=== PATIENT | female | born 1965 ===

== ENCOUNTER → 2021-03-04 14:56 | Outpatient (BNVA) | payer OTHER, SELFPAY | PROVIDERS: PCP Internal Medicine; Visit Provider Nurse Practitioner Family | DX: G43.109 Migraine with aura, not intractable, without status migrainosus (principal); G47.33 Obstructive sleep apnea (adult) (pediatric); M25.511 Pain in right shoulder | CPT/HCPCS: 99212 ==

== ENCOUNTER → 2021-05-16 13:00 | Outpatient (BNVA) | payer OTHER, SELFPAY | PROVIDERS: PCP Internal Medicine; Visit Provider Nurse Practitioner Family | DX: G43.109 Migraine with aura, not intractable, without status migrainosus (principal); G47.33 Obstructive sleep apnea (adult) (pediatric) | CPT/HCPCS: 99212 ==

== ENCOUNTER → 2021-10-24 09:47 | Outpatient (BNVA) | payer OTHER, SELFPAY | PROVIDERS: PCP Internal Medicine; Visit Provider Nurse Practitioner Family | DX: G43.109 Migraine with aura, not intractable, without status migrainosus (principal); G47.33 Obstructive sleep apnea (adult) (pediatric); E66.9 Obesity, unspecified; Z68.39 Body mass index [BMI] 39.0-39.9, adult; Z79.899 Other long term (current) drug therapy; Z99.89 Dependence on other enabling machines and devices | CPT/HCPCS: 99212 ==

== ENCOUNTER 2021-12-25 14:04 | Outpatient (REF) | payer OTHER, SELFPAY ==
[2021-12-27 15:20] LABS: H Pylori Breath Test Negative (Negative)
== END 2021-12-25 14:05 | disposition home or self-care (01) ==
LOC: HO.LNP 14:04
PROVIDERS: Visit Provider Physician Assistant Surgical
DX: E66.9 Obesity, unspecified (principal); Z11.0 Encounter for screening for intestinal infectious diseases
CPT/HCPCS: 83013

== ENCOUNTER 2021-12-26 14:44 | Outpatient (REF) | payer OTHER, SELFPAY ==
--- NOTE | ~2021-12-26 | XR_ITS ---
EXAMINATION: XR CHEST CLINICAL INFORMATION: Obesity. COMPARISON: None TECHNIQUE: 2 views of the chest were obtained. FINDINGS: The cardiac and mediastinal contours are normal. The lungs are clear. There is no pleural effusion or pneumothorax. There are median sternotomy wires. XR/XR chest 2V IMPRESSION: No evidence for acute disease in the chest.
--- NOTE | 2021-12-26 15:00 | ECG_ITS ---
Test Reason : obesity Blood Pressure : / mmHG Vent. Rate : 075 BPM Atrial Rate : 075 BPM P-R Int : 148 ms QRS Dur : 100 ms QT Int : 394 ms P-R-T Axes : 019 -12 042 degrees QTc Int : 439 ms Normal sinus rhythm Normal ECG No previous ECGs available Referred By: Vinicius Sinclair Electronically Signed By:MEL DYE MD
[2021-12-26 15:05] LABS: MANUAL DIFF FLAG NO
[2021-12-26 16:07] LABS: Basophils Percent Auto 0.2 % (0-2); Eosinophils Absolute Auto 0.1 X10*3/uL (0.0-0.4); Eosinophils Percent Auto 2.6 % (0-4); Hematocrit 41.5 % (37.0-47.0); Hemoglobin 13.3 g/dl (12.0-16.0); Imm Gran Abs Auto 0.05 X10*3/uL (0.00-0.03); Imm Gran Pct Auto 1.1 % (0.0-0.4); Lymphocytes Absolute Auto 2.3 X10*3/uL (1.2-4.9); Lymphocytes Percent Auto 49.5 % (20-40); Mean Corpuscular Hemoglobin 31.5 pg (27.0-33.0); Mean Corpuscular Volume 98.3 fL (80.0-98.0); Monocytes Absolute Auto 0.5 X10*3/uL (0.1-1.2); Monocytes Percent Auto 9.9 % (2-11); Neutrophils Absolute Auto 1.7 x10*3/uL (2.0-8.3); Neutrophils Percent Auto 36.7 % (45-73); Platelet Count 202 X10*3/uL (160-400); Red Blood Count 4.22 X10*6/uL (4.20-5.50); Red Cell Distribution Width 13.9 % (11.0-16.0); White Blood Count 4.7 X10*3/uL (4.8-10.8)
[2021-12-26 16:28] LABS: Estimated Average Glucose 128 mg/dL; Hemoglobin A1c % 6.1 %
[2021-12-26 16:41] LABS: Alanine Aminotransferase 10 U/L (0-31); Albumin Level 3.8 g/dL (3.5-5.0); Alkaline Phosphatase 59 U/L (39-117); Anion Gap 14 (12-20); Aspartate Amino Transferase 16 U/L (5-31); Bilirubin Total 0.4 mg/dL (0.0-1.0); Blood Urea Nitrogen 21 mg/dL (9-16); C Reactive Protein 0.14 mg/dL (< or = 0.50); Calcium 9.5 mg/dL (8.4-10.2); Carbon Dioxide 26 mmol/L (22-29); Chloride 110 mmol/L (96-108); Cholesterol 186 mg/dL; Estimated Glomerular Filt Rate > 60; Glucose Random 99 mg/dL (60-115); HDL Cholesterol 40 mg/dL; Iron 141 mcg/dL (30-160); LDL Cholesterol Calculated 115 mg/dl; Percent Iron Saturation 44 % (15-50); Potassium 4.8 mmol/L (3.3-5.1); Sodium 145 mmol/L (135-145); Total Iron Binding Capacity 321 mcg/dL (228-428); Total Protein 6.9 g/dL (6.5-8.0); Triglycerides 158 mg/dL; Unsaturated Iron Binding 180 ug/dL
[2021-12-26 17:00] LABS: Ferritin 94 ng/mL (10-250); TSH reflex Free T4 0.98 uIU/mL (0.32-4.0); Vitamin D 25-OH Total 5.8 ng/mL (>30)
[2021-12-26 17:10] LABS: Folate 7.7 ng/mL (> or = 4.0); Vitamin B12 265 pg/mL (200-900)
[2021-12-26 17:32] LABS: Insulin 18 uU/mL (2-29)
[2021-12-27 12:55] LABS: Calcium (PTHI) 9.3 mg/dL (8.6-10.4); PTHI 69 pg/mL (16-77)
[2021-12-31 06:18] LABS: Zinc 67 mcg/dL (60-130)
[2022-01-01 11:33] LABS: Vitamin A 34 mcg/dL (38-98)
[2022-01-01 15:52] LABS: Vitamin B1 12 nmol/L (8-30)
== END 2021-12-26 14:45 | disposition home or self-care (01) ==
LOC: HO.LAB 14:44
PROVIDERS: Visit Provider Physician Assistant Surgical
DX: E66.9 Obesity, unspecified (principal)
CPT/HCPCS: 36415; 71046; 80053; 80061; 82306; 82607; 82728; 82746; 83036; 83525; 83540; 83970; 84425; 84443; 84590; 84630; 85025; 86140; 93005; 99202; 99211; 99212

== ENCOUNTER → 2022-01-22 10:09 | Outpatient (BNVA) | payer OTHER, SELFPAY | PROVIDERS: PCP Internal Medicine; Visit Provider Physician Assistant Surgical | DX: E66.9 Obesity, unspecified (principal); Z68.37 Body mass index [BMI] 37.0-37.9, adult | CPT/HCPCS: 99212 ==

== ENCOUNTER → 2022-01-28 13:16 | Outpatient (BNVA) | payer OTHER, SELFPAY | PROVIDERS: PCP Internal Medicine; Referring Provider Physician Assistant Surgical; Visit Provider Dietitian, Registered | DX: E66.9 Obesity, unspecified (principal); Z68.37 Body mass index [BMI] 37.0-37.9, adult | CPT/HCPCS: 97802 ==

== ENCOUNTER → 2022-02-11 09:49 | Outpatient (BNVA) | payer OTHER, SELFPAY | PROVIDERS: PCP Internal Medicine; Visit Provider Physician Assistant Surgical | DX: E66.9 Obesity, unspecified (principal); Z68.37 Body mass index [BMI] 37.0-37.9, adult | CPT/HCPCS: 99212 ==

== ENCOUNTER 2022-02-13 08:06 | Outpatient (REF) | payer OTHER, SELFPAY ==
--- NOTE | ~2022-02-13 | FL_ITS ---
PROCEDURE: XR FLUOROSCOPY UPPER GI WITH AIR CLINICAL INFORMATION: Obesity. COMPARISON: None TECHNIQUE: Air-contrast upper GI examination. FINDINGS: There was normal apposition of the vocal cords while saying E . There is normal elevation of the soft palate while saying candy . Patient swallowed thin and thick barium and half-inch diameter barium tablet without difficulty. No nasopharyngeal reflux or tracheal aspiration identified. There is normal esophageal motility without evidence of persistent stricture or ulcerations/erosions. No significant hiatal hernia was identified. There is noted to be mild gastroesophageal reflux to the level of the sandeep which cleared rapidly. The stomach demonstrated normal distensibility without evidence of abnormal mass or ulceration. There was no delay in gastric emptying. The duodenal bulb and sweep appeared unremarkable. FLUOROSCOPY TIME: 2.9 minutes IMAGES: 47 images DAP: 25.815 Gy-cm2 FL/FL upper GI w air IMPRESSION: Mild gastroesophageal reflux.
--- NOTE | ~2022-02-13 | US_ITS ---
EXAMINATION: US COMPLETE ABDOMEN WITH LIVER ELASTOGRAPHY CLINICAL INFORMATION: Obesity. COMPARISON: None. TECHNIQUE: Real-time imaging of the abdominal viscera. Noninvasive ultrasound liver fibrosis assessment is performed using Cherie ElastPQ point quantification shear wave elastography (2D-SWE) with a C5-2 MHz transducer. Multiple elastography samples are obtained. FINDINGS: PANCREAS: Normal. The visualized pancreatic head and body are normal in appearance. The remainder of the pancreas is obscured from visualization by the overlying bowel gas. ABDOMINAL AORTA: The proximal, middle, and distal aortic segments are normal in caliber. INFERIOR VENA CAVA: Visualized portions are normal. LIVER: The liver demonstrates normal size, contour and increased echogenicity with areas of focal fatty sparing adjacent to gallbladder. There is a calcified area seen in the right hepatic lobe. No focal lesion or intrahepatic biliary duct dilatation. The right lobe measures 13.8 cm in length. The left lobe measures 10.0 cm in length. Portal flow is hepatopedal. Shear wave liver elastography median stiffness is 1.58 m/s (reference: normal median stiffness is 1.3 m/s or less). IQR/median stiffness to assess sampling precision is 0.09 (reference: good quality data set is IQR/median stiffness of 0.15 or less). GALLBLADDER: Normal. The gallbladder is physiologically distended without evidence of stones, sludge, polyps, wall thickening or pericholecystic fluid. COMMON BILE DUCT: Normal in caliber measuring 0.5 cm in diameter. RIGHT KIDNEY: There are in the midpole measuring 0.3 x 2.2 x 0.3 cm and 0.3 x 0.3 0.2 cm. No caliectasis or hydronephrosis seen. No renal calculi or focal parenchymal lesions. The kidney measures 11.6 cm in maximum dimension. LEFT KIDNEY: There is anechoic cyst with calcification in the midpole measuring 1.6 x 1.2 x 1.4 cm. No additional lesions seen. No hydronephrosis. No renal calculi or focal parenchymal lesions. The kidney measures 10.7 cm in maximum dimension. SPLEEN: Normal. The spleen measures 9.6 cm in maximum dimension. FREE FLUID: None. US/US abdomen comp w elastography IMPRESSION: 1. Diffuse fatty infiltration of liver with areas of focal fatty sparing. 2. Echogenic stones in midpole right kidney without caliectasis. 3. Complex cyst midpole left kidney. 4. Liver elastography: Median liver stiffness measures 1.58 m/s corresponding to cACLD ruled out. REFERENCE: Society of Radiologists in Ultrasound Liver Stiffness Thresholds (2020): LIVER STIFFNESS THRESHOLDS: *Liver Stiffness equal or less than 1.3 m/s: High probability of being normal. *Liver Stiffness less than 1.7 m/s: In the absence of other known clinical signs, rules out compensated advanced chronic liver disease. *Liver Stiffness 1.7-2.1 m/s: Suggestive of compensated advanced chronic liver disease but need further test for confirmation. *Liver Stiffness over 2.1 m/s: Rules in compensated advanced chronic liver disease. *Liver Stiffness over 2.4 m/s: Suggestive of clinically significant portal hypertension. QUALITY OF DATA SET: *IQR/Median value equal or less than 0.15 implies a quality data set. *IQR/Median value over 0.15 implies a poor quality data set. SIGNIFICANT CHANGE FROM PRIOR EXAM: Significant change if liver stiffness measurement is 10% or greater from prior exam. OTHER CONSIDERATIONS: The stage of liver fibrosis may be overestimated in the setting of acute hepatitis, liver inflammation, elevated liver function tests, hepatic vascular congestion, obstructive cholestasis, non-fasting state, and infiltrative diseases such as amyloidosis and lymphoma. In some patients with NAFLD, the liver stiffness thresholds for compensated advanced chronic liver disease may be lower. In causes other than viral hepatitis and NAFLD, liver stiffness thresholds are not well established.
== END 2022-02-13 08:07 | disposition home or self-care (01) ==
LOC: HO.US 08:06
PROVIDERS: Visit Provider Physician Assistant Surgical
DX: E66.9 Obesity, unspecified (principal)
CPT/HCPCS: 74246; 76705; 76981

== ENCOUNTER → 2022-02-25 11:01 | Outpatient (BNVA) | payer OTHER, SELFPAY | PROVIDERS: PCP Internal Medicine; Visit Provider Dietitian, Registered | DX: E66.9 Obesity, unspecified (principal); Z68.36 Body mass index [BMI] 36.0-36.9, adult; Z71.3 Dietary counseling and surveillance | CPT/HCPCS: 97803 ==

== ENCOUNTER → 2022-03-05 09:37 | Outpatient (BNVA) | payer OTHER, SELFPAY | PROVIDERS: PCP Internal Medicine; Visit Provider Physician Assistant Surgical | DX: E66.9 Obesity, unspecified (principal); Z68.36 Body mass index [BMI] 36.0-36.9, adult | CPT/HCPCS: 99212 ==

== ENCOUNTER → 2022-04-02 13:57 | Outpatient (BNVA) | payer OTHER, SELFPAY | PROVIDERS: PCP Internal Medicine; Referring Provider Internal Medicine; Visit Provider Physician Assistant Surgical | DX: E66.9 Obesity, unspecified (principal); Z68.35 Body mass index [BMI] 35.0-35.9, adult | CPT/HCPCS: 99212 ==

== ENCOUNTER → 2022-04-04 13:21 | Outpatient (BNVA) | payer OTHER, SELFPAY | PROVIDERS: PCP Internal Medicine; Referring Provider Internal Medicine; Visit Provider Dietitian, Registered | DX: E66.9 Obesity, unspecified (principal); Z71.3 Dietary counseling and surveillance | CPT/HCPCS: 97803 ==

== ENCOUNTER → 2022-04-22 14:16 | Outpatient (BNVA) | payer OTHER, SELFPAY | PROVIDERS: PCP Internal Medicine; Referring Provider Internal Medicine; Visit Provider Surgery | DX: E66.9 Obesity, unspecified (principal); E78.00 Pure hypercholesterolemia, unspecified; G47.33 Obstructive sleep apnea (adult) (pediatric); G43.109 Migraine with aura, not intractable, without status migrainosus; Z90.710 Acquired absence of both cervix and uterus; Z98.890 Other specified postprocedural states; Z68.35 Body mass index [BMI] 35.0-35.9, adult | CPT/HCPCS: 99212 ==

== ENCOUNTER → 2022-04-24 09:24 | Outpatient (BNVA) | payer OTHER, SELFPAY | PROVIDERS: PCP Internal Medicine; Visit Provider Nurse Practitioner Family | DX: G43.109 Migraine with aura, not intractable, without status migrainosus (principal); G47.33 Obstructive sleep apnea (adult) (pediatric); R41.82 Altered mental status, unspecified; F10.11 Alcohol abuse, in remission; Z79.899 Other long term (current) drug therapy | CPT/HCPCS: 99212 ==

== ENCOUNTER 2022-05-05 10:08 | Outpatient (REF) | payer OTHER, SELFPAY ==
--- NOTE | 2022-05-05 10:17 | ECG_ITS ---
Test Reason : AMS Blood Pressure : / mmHG Vent. Rate : 069 BPM Atrial Rate : 069 BPM P-R Int : 166 ms QRS Dur : 106 ms QT Int : 398 ms P-R-T Axes : 020 -17 029 degrees QTc Int : 426 ms Normal sinus rhythm Minimal voltage criteria for LVH, may be normal variant ( Syed product ) Borderline ECG When compared with ECG of 26-DEC-2021 15:09, No significant change was found Referred By: Kiesha Werner Electronically Signed By:TOBIN BEAL
[2022-05-05 10:23] LABS: MANUAL DIFF FLAG NO
[2022-05-05 10:59] LABS: Basophils Percent Auto 0.4 % (0-2); Eosinophils Absolute Auto 0.1 X10*3/uL (0.0-0.4); Eosinophils Percent Auto 1.6 % (0-4); Hematocrit 47.1 % (37.0-47.0); Hemoglobin 14.9 g/dl (12.0-16.0); Imm Gran Abs Auto 0.02 X10*3/uL (0.00-0.03); Imm Gran Pct Auto 0.4 % (0.0-0.4); Lymphocytes Percent Auto 52.7 % (20-40); Mean Corpuscular HGB Conc 31.6 g/dl (31.0-35.0); Mean Corpuscular Volume 98.1 fL (80.0-98.0); Mean Platelet Volume 11.6 fL (9.4-12.3); Monocytes Absolute Auto 0.7 X10*3/uL (0.1-1.2); Monocytes Percent Auto 11.6 % (2-11); Neutrophils Absolute Auto 1.9 x10*3/uL (2.0-8.3); Neutrophils Percent Auto 33.3 % (45-73); Platelet Count 168 X10*3/uL (160-400); Red Cell Distribution Width 13.2 % (11.0-16.0); White Blood Count 5.7 X10*3/uL (4.8-10.8)
[2022-05-05 11:15] LABS: Valproate 49.3 mcg/mL (50.0-100.0)
[2022-05-05 11:38] LABS: Alanine Aminotransferase 16 U/L (0-31); Alkaline Phosphatase 59 U/L (39-117); Anion Gap 12 (12-20); Aspartate Amino Transferase 19 U/L (5-31); Bilirubin Total 0.5 mg/dL (0.0-1.0); Blood Urea Nitrogen 21 mg/dL (9-16); Calcium 9.5 mg/dL (8.4-10.2); Carbon Dioxide 28 mmol/L (22-29); Chloride 111 mmol/L (96-108); Estimated Glomerular Filt Rate > 60; Glucose Random 91 mg/dL (60-115); Sodium 147 mmol/L (135-145); Total Protein 6.9 g/dL (6.5-8.0)
[2022-05-05 11:40] LABS: Erythrocyte Sedimentation Rate 2 MM/HR (0-20)
[2022-05-07 19:24] LABS: CRP High Sensitivity 2.5 mg/L
== END 2022-05-05 10:09 | disposition home or self-care (01) ==
LOC: HO.LAB 10:08
PROVIDERS: PCP Internal Medicine; Visit Provider Nurse Practitioner Family
DX: G43.109 Migraine with aura, not intractable, without status migrainosus (principal); R41.82 Altered mental status, unspecified; Z98.890 Other specified postprocedural states
CPT/HCPCS: 36415; 80053; 80164; 85025; 85652; 86141; 93005

== ENCOUNTER → 2022-05-08 13:22 | Outpatient (BNVA) | payer OTHER, SELFPAY | PROVIDERS: PCP Internal Medicine; Visit Provider Physician Assistant Surgical | DX: E66.9 Obesity, unspecified (principal); Z98.890 Other specified postprocedural states; Z68.34 Body mass index [BMI] 34.0-34.9, adult | CPT/HCPCS: 99212 ==

== ENCOUNTER 2022-05-16 08:13 | Outpatient (REF) | payer OTHER, SELFPAY ==
--- NOTE | 2022-05-16 08:18 | EEG_ITS ---
This is a 16-channel EEG with an EKG lead. The patient is reported awake during the tracing. Background EEG rhythm was mixed theta beta with no obvious asymmetry or paroxysmal tendency. Photic stimulation does not produce any significant abnormality. Hyperventilation is unremarkable. Cardiac lead does not reveal any significant abnormality. No sharp wave spikes or paroxysmal tendencies noted. IMPRESSION: No significant abnormality noted on this EEG. MD DU Jimenez/CADE / [id number]
== END 2022-05-16 08:14 | disposition home or self-care (01) ==
LOC: HO.NEURO 08:13
PROVIDERS: Visit Provider Nurse Practitioner Family
DX: R41.82 Altered mental status, unspecified (principal); F10.11 Alcohol abuse, in remission; G43.109 Migraine with aura, not intractable, without status migrainosus
CPT/HCPCS: 95816

== ENCOUNTER → 2022-05-19 09:53 | Outpatient (REF) | payer OTHER, SELFPAY | LOC: HO.SL 09:53 | PROVIDERS: PCP Internal Medicine; Visit Provider Nurse Practitioner Family | DX: G47.33 Obstructive sleep apnea (adult) (pediatric) (principal); R06.83 Snoring; R63.4 Abnormal weight loss | CPT/HCPCS: 95806 ==

== ENCOUNTER 2022-05-23 07:16 | Outpatient (REF) | payer OTHER, SELFPAY ==
--- NOTE | ~2022-05-23 | MR_ITS ---
EXAMINATION: MRI OF THE BRAIN WITHOUT CONTRAST CLINICAL INFORMATION: Altered mental status and new onset seizures. COMPARISON: There are no prior studies available for comparison at time of dictation. TECHNIQUE: MRI of the brain was obtained using routine sequences without contrast. FINDINGS: No diffusion abnormalities are identified to suggest an acute or subacute infarct. No mass effect or midline shift is seen. The ventricles and sulci are normal in size; slight asymmetry of the bodies of the lateral ventricles is within normal limits of variation. There are a few scattered nonspecific foci of hyperintense T2/FLAIR signal in the white matter. The hippocampi are symmetric in size and signal. No extra-axial fluid collections are seen. The brainstem and cerebellum are normal. No pathologic magnetic susceptibility artifact is identified on the gradient refocused acquisition. The craniovertebral junction, marrow signal, and midline structures are normal. There are mild degenerative changes of the right temporomandibular joint. The major intracranial flow-voids at the level of the [place] are preserved. The dural venous sinus flow-voids are maintained. The mastoid air cells and paranasal sinuses are well-aerated. MR/MR head/brain wo con IMPRESSION: 1. There are no acute bleeds or infarcts. No masses are demonstrated. The hippocampi are symmetric in size and signal.
== END 2022-05-23 07:17 | disposition home or self-care (01) ==
LOC: HO.MRI 07:16
PROVIDERS: PCP Internal Medicine; Visit Provider Nurse Practitioner Family
DX: R41.82 Altered mental status, unspecified (principal); F10.11 Alcohol abuse, in remission; G43.109 Migraine with aura, not intractable, without status migrainosus
CPT/HCPCS: 70551

== ENCOUNTER → 2022-08-01 10:28 | Outpatient (BNVA) | payer OTHER, SELFPAY | PROVIDERS: PCP Internal Medicine; Visit Provider Physician Assistant Surgical | DX: E66.9 Obesity, unspecified (principal); Z68.35 Body mass index [BMI] 35.0-35.9, adult | CPT/HCPCS: Q3014 ==

== ENCOUNTER → 2022-08-21 12:15 | Outpatient (BNVA) | payer OTHER, SELFPAY | PROVIDERS: PCP Internal Medicine; Visit Provider Nurse Practitioner Family | DX: G43.109 Migraine with aura, not intractable, without status migrainosus (principal); R41.82 Altered mental status, unspecified; M54.50 Low back pain, unspecified; Z79.899 Other long term (current) drug therapy | CPT/HCPCS: 99212 ==

== ENCOUNTER → 2022-08-29 14:29 | Outpatient (BNVA) | payer OTHER, SELFPAY | PROVIDERS: PCP Internal Medicine; Visit Provider Dietitian, Registered | DX: E66.9 Obesity, unspecified (principal); Z71.3 Dietary counseling and surveillance | CPT/HCPCS: 97803 ==

== ENCOUNTER 2022-12-22 12:52 | Outpatient (AMB) | payer OTHER, SELFPAY ==
--- NOTE | 2022-12-22 13:01 | MHC.OFFVIS ---
Intake Vital Signs 12/22/22 13:02 Height 5 ft 6.5 in Weight 243 lb BMI 38.6 BP 114/78 Blood Pressure Location Rt brachial Position Sitting Pulse 94 Pulse Source Pulse Oximeter Pulse Oximetry (%) 97 Oxygen Delivery Method Room Air Intake Visit Reasons: 4m follow up-LVM Intake Note: Patient presents for 4 month follow up. Patient states I'm getting a lot of headaches in the morning not sure if it's becuse of the cold weather. Allergies aspirin Allergy (Severe, Verified 12/22/22 13:04) Anaphylaxis corn Allergy (Severe, Verified 12/22/22 13:04) anaphylaxis pineapple Allergy (Severe, Verified 12/22/22 13:04) Hives seafood Allergy (Severe, Verified 12/22/22 13:04) anaphylaxis heparin Allergy (Mild, Verified 12/22/22 13:04) Unknown Latex, Natural Rubber Allergy (Mild, Verified 12/22/22 13:04) unknown nitrofurantoin [From Macrobid] Allergy (Mild, Verified 12/22/22 13:04) unknown Medication List - Last Reconciled 12/22/22 by LINDA Haynes albuterol sulfate 0.63 mg inhalation Q4-6H PRN albuterol sulfate 90 mcg/actuation 2 puffs inhalation Q6H PRN amitriptyline 30 mg (3 x 10 mg) PO BEDTIME 30 days atorvastatin 20 mg PO DAILY baclofen 20 mg (2 x 10 mg) PO BEDTIME PRN 90 days cholecalciferol (vitamin D3) 125 mcg PO DAILY clonazepam (Klonopin) 1 mg PO BID cyanocobalamin (vitamin B-12) (Vitamin B-12) 1,000 mcg PO DAILY divalproex ER 500 mg PO BID erenumab-aooe (Aimovig Autoinjector) 140 mg subcut monthly; 30 days meloxicam 15 mg PO DAILY mirabegron ER (Myrbetriq) 25 mg PO DAILY mirtazapine 45 mg PO DAILY omeprazole 20 mg PO DAILY risperidone 2 mg PO BEDTIME sumatriptan succinate 50 - 100 mg (0.5 - 1 x 100 mg) PO Q2H PRN 2 doses topiramate 50 mg PO BID 90 days tretinoin 0.025% appl topical vitamin A palmitate 10,000 units PO DAILY zafirlukast 20 mg PO BID HPI HPI Comments History of Present Illness Details 57-yr-old female presents for f/u visit. Pt reports she had a recent lumbar injection, which was not helpful. Her atorvaststin was increased from 20mg to 40mg qhs about a month ago. She has been waking up with a pounding headache x's the past month. A/w photophobia, phonophobia, N/V. Just wants to lay down in a dark quiet room. The pain is mod-severe. She is complaint w/ Amitriptyline, Aimovig- alst injection was 2 days ago, topiramate. She did run out of baclofen about 2 weeks ago. She is using Sumatriptan and Tylenol- sometimes works, sometimes it does not work. She has not had any episodes of spacing out or AMS. She is wondering if she still really needs to use her CPAP- she does still ahve fatigue, some snoring and sleep difficulties. [facility] Medical History History of ETOH abuse Surgical History S/P right rotator cuff repair H/O heart surgery Total knee replacement status H/O: hysterectomy Family History Father HTN (hypertension) Mother Chronic mental illness Depression Anxiety Family/Other Chronic mental illness Depression Anxiety Schizophrenia Social History Alcohol intake: never Patient Tobacco Use Status: Never used Tobacco Review of Systems Const All systems reviewed & are unremarkable except as noted in HPI and below Physical Exam Vital Signs: Last Vital Signs Pulse 94 12/22/22 13:02 BP 114/78 12/22/22 13:02 Pulse Ox 97 12/22/22 13:02 Oxygen Delivery Method Room Air 12/22/22 13:02 BMI result Body Mass Index 38.6 Const General: cooperative and no acute distress Orientation/consciousness: patient oriented x3 HEENT Head: Yes normocephalic Resp Effort & Inspection: normal respiratory effort and able to speak in complete sentences Neuro Other: Antalgic gait w/ cane General: patient oriented x3 and CN's II-XI intact bilaterally Cognition (Neuro): normal cognition Motor exam (neuro): 5/5 motor strength present throughout Psych Appearance: grossly normal Mental Status: mental status grossly normal Speech and movement: Normal speech and movement present Affect: normal affect Attitude: cooperative Thought process: Normal thought process present Thought content: Normal thought content present Insight: Good insight present (Psych) Judgement: Good judgement present (Psych) Assessment & Plan Assessment & Plan (1) Snoring: Code(s): R06.83 - Snoring (2) Sleep difficulties: Code(s): G47.9 - Sleep disorder, unspecified (3) Fatigue: Code(s): R53.83 - Other fatigue (4) Nocturnal hypoxemia: Code(s): G47.34 - Idiopathic sleep related nonobstructive alveolar hypoventilation (5) Migraine with aura, not intractable, without status migrainosus: Code(s): G43.109 - Migraine with aura, not intractable, without status migrainosus Plan For h/o transient episodes of AMS w/o LOC: Cntinue Depakote and Topiramate. For low back pain: Continue Baclofen to 20mg bid (or 5mg bid and 10mg qhs) f/u w/ ortho ? For headaches: Try reducing Atorvaststin back to 20mg qhs- to see if that improves her increased headache burden. Continue Topiramate. Continue Amitriptyline, Mag, B2, Aimovig. Continue Sumatriptan to 100mg- 1/2-1 tab prn. Trial Rizatriptan- in hopes this is more helpful ? For sleep: Continue CPAP for now. Pt advised to undergo in-lab PSG to further assess status of sleep apnea. HST showed AHI 3/hr, O2 himanshu 69%, Average SpO2 93%. ? f/u in 4 months or sooner prn. Orders: Orders RT PSG in-lab sleep study Today G47.34 - Idiopathic sleep related nonobstructive alveolar hypoventilation, G47.9 - Sleep disorder, unspecified, R06.83 - Snoring, R53.83 - Other fatigue Medications: New atorvastatin 40 mg PO BEDTIME celecoxib (Celebrex) 50 mg PO DAILY rizatriptan max 2 tabs per day or 4 tabs per week 5 - 10 mg (0.5 - 1 x 10 mg) PO Q2H 21 days PRN 12 tabs 3RF migraine headache Refilled baclofen 20 mg (2 x 10 mg) PO BEDTIME 90 days PRN 180 tabs 1RF for muscle spasm Coding Level of Care Code Est Pt Level 4 (84756) Diagnoses Snoring R06.83 Sleep difficulties G47.9 Fatigue R53.83 Nocturnal hypoxemia G47.34 Migraine with aura, not intractable, without status migrainosus G43.109
[2022-12-22 13:02] VITALS: BP 114/78; PULSE 94; O2SAT 97; BMI 38.6
== END 2022-12-22 13:37 | disposition home or self-care (01) ==
PROVIDERS: PCP Internal Medicine; Visit Provider Nurse Practitioner Family
DX: R06.83 Snoring (principal); G47.9 Sleep disorder, unspecified; R53.83 Other fatigue; G47.34 Idiopathic sleep related nonobstructive alveolar hypoventilation; G43.109 Migraine with aura, not intractable, without status migrainosus
CPT/HCPCS: 99214

== ENCOUNTER → 2022-12-22 12:52 | Outpatient (BNVA) | payer OTHER, SELFPAY | PROVIDERS: PCP Internal Medicine; Visit Provider Nurse Practitioner Family | DX: G43.109 Migraine with aura, not intractable, without status migrainosus (principal); G47.9 Sleep disorder, unspecified; G47.34 Idiopathic sleep related nonobstructive alveolar hypoventilation; R53.83 Other fatigue; R06.83 Snoring | CPT/HCPCS: 99212 ==

== ENCOUNTER → 2023-01-21 18:40 | Outpatient (REF) | payer OTHER, SELFPAY | LOC: HO.SL 18:40 | PROVIDERS: PCP Internal Medicine; Visit Provider Nurse Practitioner Family | DX: G47.34 Idiopathic sleep related nonobstructive alveolar hypoventilation (principal); R06.83 Snoring; R53.83 Other fatigue | CPT/HCPCS: 95810 ==

== ENCOUNTER → 2023-01-21 23:23 | Outpatient (BNV) | payer OTHER, SELFPAY | PROVIDERS: PCP Internal Medicine; Visit Provider Psychiatry & Neurology Neurology | DX: R06.83 Snoring (principal) | CPT/HCPCS: 95810 ==

== ENCOUNTER 2023-04-29 13:03 | Outpatient (AMB) | payer OTHER, SELFPAY ==
--- NOTE | 2023-04-29 13:04 | MHC.OFFVIS ---
Intake Intake Visit Reasons: 4 mnts f/u appt - CONF w/address-[facility] Intake Note: patieint following up Allergies aspirin Allergy (Severe, Verified 04/29/23 13:05) Anaphylaxis corn Allergy (Severe, Verified 04/29/23 13:05) anaphylaxis pineapple Allergy (Severe, Verified 04/29/23 13:05) Hives seafood Allergy (Severe, Verified 04/29/23 13:05) anaphylaxis heparin Allergy (Mild, Verified 04/29/23 13:05) Unknown Latex, Natural Rubber Allergy (Mild, Verified 04/29/23 13:05) unknown nitrofurantoin [From Macrobid] Allergy (Mild, Verified 04/29/23 13:05) unknown PFSH Medical History History of ETOH abuse Surgical History S/P right rotator cuff repair H/O heart surgery Total knee replacement status H/O: hysterectomy Family History Father HTN (hypertension) Mother Chronic mental illness Depression Anxiety Family/Other Chronic mental illness Depression Anxiety Schizophrenia Social History Alcohol intake: never Patient Tobacco Use Status: Never used Tobacco Assessment & Plan Assessment & Plan (1) Migraine with aura, not intractable, without status migrainosus: Code(s): G43.109 - Migraine with aura, not intractable, without status migrainosus Plan pt did not respond to doximity link Telehealth Telehealth Location of provider rendering services: practice address Location of patient: address on file Patient Identification confirmed using: Name, : Yes Telehealth method: voice only Patient verbally consented to treatment: Yes Patient verbally consented to billing insurance company: Yes Patient informed of any privacy concerns related to visit: Yes Coding Level of Care Code Tele Est Pt Level 1 (57793) Diagnoses Migraine with aura, not intractable, without status migrainosus G43.109 Comment pt did not connect via link
== END 2023-04-29 16:45 ==
LOC: HO.HSMS 13:04
PROVIDERS: PCP Internal Medicine; Visit Provider Nurse Practitioner Family
DX: G43.109 Migraine with aura, not intractable, without status migrainosus (principal)
CPT/HCPCS: 99211

== ENCOUNTER → 2023-04-29 13:03 | Outpatient (BNVA) | payer OTHER, SELFPAY | PROVIDERS: PCP Internal Medicine; Visit Provider Nurse Practitioner Family ==

== ENCOUNTER 2023-06-05 12:46 | Outpatient (AMB) | payer OTHER, SELFPAY ==
[2023-06-05 12:58] VITALS: BP 124/74; PULSE 71; O2SAT 96; BMI 40.4
--- NOTE | 2023-06-05 12:58 | A.OFFVIS_ITS ---
Intake Vital Signs 06/05/23 12:58 Height 5 ft 6.5 in Weight 254 lb BMI 40.4 BP 124/74 Blood Pressure Location Rt brachial Position Sitting Pulse 71 Pulse Source Pulse Oximeter Pulse Oximetry (%) 96 Oxygen Delivery Method Room Air Intake Visit Reasons: Followup-Conf Intake Note: Patient presents for follow up.Patient following up had a headache episode about a month. Allergies aspirin Allergy (Severe, Verified 06/05/23 13:01) Anaphylaxis corn Allergy (Severe, Verified 06/05/23 13:01) anaphylaxis pineapple Allergy (Severe, Verified 06/05/23 13:01) Hives seafood Allergy (Severe, Verified 06/05/23 13:01) anaphylaxis heparin Allergy (Mild, Verified 06/05/23 13:01) Unknown Latex, Natural Rubber Allergy (Mild, Verified 06/05/23 13:01) unknown nitrofurantoin [From Macrobid] Allergy (Mild, Verified 06/05/23 13:01) unknown HPI HPI Comments History of Present Illness Details 57-yr-old female presents for f/u visit. She recently had a a recent ? left upper molar tooth repair. Pt reports she had a fall about 2 months ago in the shower. She got lightheaded, tripped, and then fell. States had some bruising, but did not feel she needed to go to the ER. She is not prone to becoming lightheaded in the shower. Prior to the day of the fall, she had been fasting for Lent- had taken only water and bread x's the previous 27 days (she has been doing this fast for the last yrs during Lent and also for Buddhist). After the fall, she stopped her fast. She has not been having many migraines. She is complaint w/ Amitriptyline, Aimovig, topiramate. Uisng Rizatripan prn- is helpful. Using Baclofen prn with occipital/neck tightness. She is using Sumatriptan and Tylenol- sometimes works, sometimes it does not work. Baseline headache characteristics: Moderate to severe pounding headache a/w photophobia, phonophobia, N/V. Just wants to lay down in a dark quiet room. She has not had any episodes of spacing out or AMS. Her in-lab sleep study showed AHI 3/hr, REM AHI 30/hr, and O2 himanshu 73%. Pt is f/b Dr Clements, and pt has requested Dr Clements to f/u on recommendations to assess the nocturnal hypoxemia. [facility] Medical History (Updated 06/05/23 @ 14:02 by LINDA Haynes) History of ETOH abuse Surgical History (Updated 06/05/23 @ 13:02 by NEGRA Holland) H/O breast biopsy S/P right rotator cuff repair H/O heart surgery Total knee replacement status H/O: hysterectomy Family History Father HTN (hypertension) Mother Chronic mental illness Depression Anxiety Family/Other Chronic mental illness Depression Anxiety Schizophrenia Social History Alcohol intake: never Patient Tobacco Use Status: Never used Tobacco Physical Exam Vital Signs: Last Vital Signs Pulse 71 06/05/23 12:58 BP 124/74 06/05/23 12:58 Pulse Ox 96 06/05/23 12:58 Oxygen Delivery Method Room Air 06/05/23 12:58 BMI result Body Mass Index 40.4 Const General: cooperative and no acute distress Orientation/consciousness: patient oriented x3 Resp Effort & Inspection: normal respiratory effort and able to speak in complete sentences Neuro Other: General: patient oriented x3 Cranial nerves: Yes CN's II-XII intact bilaterally (w/ lower facial asymmetry- left cheek swelling s/p dental work) Cognition (Neuro): normal cognition Psych Appearance: grossly normal Mental Status: mental status grossly normal Speech and movement: Normal speech and movement present Affect: normal affect Attitude: cooperative Assessment & Plan Assessment & Plan (1) Migraine with aura, not intractable, without status migrainosus: Code(s): G43.109 - Migraine with aura, not intractable, without status migrainosus (2) Nocturnal hypoxemia: Code(s): G47.34 - Idiopathic sleep related nonobstructive alveolar hypoventilation (3) Episodic lightheadedness: Code(s): R42 - Dizziness and giddiness Plan For recent episode of lightheadedness and fall- Likely secondary to prolonged fasting. Advised pt to avoid fasting d/t migraine and polypharmacy. For h/o transient episodes of AMS w/o LOC: Continue Depakote and Topiramate. Check CBC, CMP, Depakote levels. For low back pain: Continue Baclofen to 20mg bid (or 5mg bid and 10mg qhs) ? For headaches: Continue Topiramate. Continue Amitriptyline, Mag, B2, Aimovig. Continue Rizatriptan prn Hold Sumatriptan to 100mg- 1/2-1 tab prn. ? For sleep: Continue CPAP for now. Pt in-lab sleep study showed AHI 3/hr, REM AHI 30/hr, and O2 himanshu 73%. HST showed AHI 3/hr, O2 himanshu 69%, Average SpO2 93%. [id number] w/ Dr Clements as scheduled. ? f/u in 6 months or sooner prn. Orders: Orders Complete Blood Count Auto Diff Today G43.109 - Migraine with aura, not intractable, without status migrainosus, R41.82 - Altered mental status, unspecified, R53.83 - Other fatigue Comprehensive Met. Panel Today G43.109 - Migraine with aura, not intractable, without status migrainosus, R41.82 - Altered mental status, unspecified, R53.83 - Other fatigue Valproate Today G43.109 - Migraine with aura, not intractable, without status migrainosus, R41.82 - Altered mental status, unspecified, R53.83 - Other fatigue Coding Level of Care Code Est Pt Level 4 (23775) Diagnoses Migraine with aura, not intractable, without status migrainosus G43.109 Nocturnal hypoxemia G47.34 Episodic lightheadedness R42
== END 2023-06-05 13:44 | disposition home or self-care (01) ==
PROVIDERS: PCP Internal Medicine; Visit Provider Nurse Practitioner Family
DX: G43.109 Migraine with aura, not intractable, without status migrainosus (principal); G47.34 Idiopathic sleep related nonobstructive alveolar hypoventilation; R42 Dizziness and giddiness
CPT/HCPCS: 99214

== ENCOUNTER → 2023-06-05 12:46 | Outpatient (BNVA) | payer OTHER, SELFPAY | PROVIDERS: PCP Internal Medicine; Visit Provider Nurse Practitioner Family | DX: G43.109 Migraine with aura, not intractable, without status migrainosus (principal); G47.34 Idiopathic sleep related nonobstructive alveolar hypoventilation; R42 Dizziness and giddiness | CPT/HCPCS: 99212 ==

== ENCOUNTER 2023-08-06 10:47 | Outpatient (REF) | payer OTHER, SELFPAY ==
[2023-08-06 17:34] LABS: MANUAL DIFF FLAG NO
[2023-08-06 17:37] LABS: Basophils Percent Auto 0.3 % (0-2); Eosinophils Absolute Auto 0.1 X10*3/uL (0.0-0.4); Eosinophils Percent Auto 2.1 % (0-4); Hematocrit 44.5 % (37.0-47.0); Hemoglobin 14.7 g/dl (12.0-16.0); Imm Gran Abs Auto 0.04 X10*3/uL (0.00-0.03); Imm Gran Pct Auto 0.6 % (0.0-0.4); Lymphocytes Absolute Auto 1.9 X10*3/uL (1.2-4.9); Lymphocytes Percent Auto 30.6 % (20-40); Mean Corpuscular Volume 96.7 fL (80.0-98.0); Mean Platelet Volume 10.6 fL (9.4-12.3); Monocytes Absolute Auto 0.4 X10*3/uL (0.1-1.2); Monocytes Percent Auto 6.1 % (2-11); Neutrophils Absolute Auto 3.8 x10*3/uL (2.0-8.3); Neutrophils Percent Auto 60.3 % (45-73); Platelet Count 229 X10*3/uL (160-400); Red Cell Distribution Width 12.9 % (11.0-16.0); White Blood Count 6.3 X10*3/uL (4.8-10.8)
[2023-08-06 17:51] LABS: Alanine Aminotransferase 17 U/L (0-31); Albumin Level 3.9 g/dL (3.5-5.0); Alkaline Phosphatase 65 U/L (39-117); Anion Gap 16 (12-20); Aspartate Amino Transferase 18 U/L (5-31); Bilirubin Total 0.3 mg/dL (0.0-1.0); Blood Urea Nitrogen 22 mg/dL (9-16); Calcium 9.3 mg/dL (8.4-10.2); Carbon Dioxide 24 mmol/L (22-29); Chloride 107 mmol/L (96-108); Estimated Glomerular Filt Rate > 60; Glucose Random 178 mg/dL (60-115); Potassium 3.9 mmol/L (3.3-5.1); Sodium 143 mmol/L (135-145)
== END 2023-08-06 10:48 | disposition home or self-care (01) ==
LOC: HO.HKASLDS 10:47
PROVIDERS: Visit Provider Nurse Practitioner Family
DX: R42 Dizziness and giddiness (principal); Z91.81 History of falling
CPT/HCPCS: 36415; 80053; 85025

== ENCOUNTER 2023-08-27 06:50 | Outpatient (REF) | payer OTHER, SELFPAY ==
--- NOTE | ~2023-08-27 | CT_ITS ---
EXAMINATION: CT HEAD WITHOUT CONTRAST CLINICAL INFORMATION: Fall. Head trauma. COMPARISON: MRI dated 05/23/2022. TECHNIQUE: Contiguous axial imaging was performed from the skullbase to vertex without intravenous administration of contrast. This CT examination was performed using dose optimization techniques as appropriate, variously including the following: *Automated exposure control *Adjustment of mA and/or kV according to patient size (this includes techniques or standardized protocols for targeted exams where dose is matched to indication/reason for exam; i.e. extremities or head) *Use of iterative reconstruction technique DLP: 1035 mGy-cm. FINDINGS: There is no evidence of acute intracranial hemorrhage or territorial infarction. No abnormal mass effect or midline shift is seen. [place] to white matter differentiation is well preserved. No extra-axial fluid collections are identified. The ventricles are normal in size. There is no abnormal attenuation within the brain parenchyma. The osseous structures and soft tissues are normal. The mastoid air cells and visualized portions of the paranasal sinuses are well aerated. CT/CT head/brain wo IV con IMPRESSION: No acute intracranial pathology.
== END 2023-08-27 06:51 | disposition home or self-care (01) ==
LOC: HO.CT 06:50
PROVIDERS: PCP Internal Medicine; Visit Provider Nurse Practitioner Family
DX: S09.90XA Unspecified injury of head, initial encounter (principal); R42 Dizziness and giddiness; W19.XXXA Unspecified fall, initial encounter
CPT/HCPCS: 70450

== ENCOUNTER 2023-11-30 12:54 | Outpatient (AMB) | payer OTHER, SELFPAY ==
[2023-11-30 13:09] VITALS: PULSE 78; O2SAT 97; BMI 41.3
--- NOTE | 2023-11-30 13:09 | A.OFFVIS_ITS ---
Vital Signs 11/30/23 13:09 Height 5 ft 6.5 in Weight 260 lb BMI 41.3 Pulse 78 Pulse Source Pulse Oximeter Pulse Oximetry (%) 97 Oxygen Delivery Method Room Air Intake Visit Reasons: Follow up Intake Note: Patient presents for follow up. patient having constant headaches for 2 weeks now Allergies aspirin Allergy (Severe, Verified 11/30/23 13:11) Anaphylaxis corn Allergy (Severe, Verified 11/30/23 13:11) anaphylaxis pineapple Allergy (Severe, Verified 11/30/23 13:11) Hives seafood Allergy (Severe, Verified 11/30/23 13:11) anaphylaxis heparin Allergy (Mild, Verified 11/30/23 13:11) Unknown Latex, Natural Rubber Allergy (Mild, Verified 11/30/23 13:11) unknown nitrofurantoin [From Macrobid] Allergy (Mild, Verified 11/30/23 13:11) unknown Medication List - Last Reconciled 11/30/23 by LINDA Haynes albuterol sulfate 0.63 mg inhalation Q4-6H PRN albuterol sulfate 90 mcg/actuation 2 puffs inhalation Q6H PRN amitriptyline 30 mg (3 x 10 mg) PO BEDTIME 30 days atorvastatin 40 mg PO BEDTIME baclofen 20 mg (2 x 10 mg) PO BEDTIME PRN 90 days celecoxib (Celebrex) 50 mg PO DAILY cholecalciferol (vitamin D3) 125 mcg PO DAILY clonazepam (Klonopin) 1 mg PO BID cyanocobalamin (vitamin B-12) (Vitamin B-12) 1,000 mcg PO DAILY divalproex ER 500 mg PO BID erenumab-aooe (Aimovig Autoinjector) 140 mg subcut monthly; 30 days meloxicam 15 mg PO DAILY mirabegron ER (Myrbetriq) 25 mg PO DAILY mirtazapine 45 mg PO DAILY omeprazole 20 mg PO DAILY risperidone 2 mg PO BEDTIME rizatriptan 5 - 10 mg (0.5 - 1 x 10 mg) PO Q2H PRN 21 days sumatriptan succinate 50 - 100 mg (0.5 - 1 x 100 mg) PO Q2H PRN 2 doses topiramate 50 mg PO BID 90 days tretinoin 0.025% appl topical vitamin A palmitate 10,000 units PO DAILY zafirlukast 20 mg PO BID HPI Comments Details: 58-yr-old female presents for f/u visit. Pt denies any significant interval medical changes. Pt reports she has been waking up every night at 3am w/ a different headache. the headache starts as a pressure in her neck and moves up into her bilateral temples, which is a/w photophobia, nausea, neck numbness. The headache comes and goes throughout the day. She is not sure if headache is worse or better with certain positions. Her vision is more blurry- started about a month ago. Her last eye exam was 3 months ago- was given new prescription glasses in August which initially was helpful. Nothing seems to help this headache, even her triptans and topamax. Using Baclofen 10-20mg prn- not recently. She is f/b [facility] for her neck pain/tightness- has had c-spine XR and has been referred for MRI- appt pending PA. Denies recent accidents, injuries, illness, fever. She is not sure how often she is having her typical migraine- hard to tell which is which. Baseline headache characteristics: Moderate to severe pounding headache a/w photophobia, phonophobia, N/V. Just wants to lay down in a dark quiet room. She has had one episode of feeling dizzy while in bed. She has not been using her CPAP, states we told her she did not have to. She had a recent sleep study- ordered by Dr Clements. [facility] Medical History History of ETOH abuse Surgical History H/O breast biopsy S/P right rotator cuff repair H/O heart surgery Total knee replacement status H/O: hysterectomy Family History Father HTN (hypertension) Mother Chronic mental illness Depression Anxiety Family/Other Chronic mental illness Depression Anxiety Schizophrenia Social History Alcohol intake: never Patient Tobacco Use Status: Never used Tobacco Physical Exam Vital Signs: Last Vital Signs Pulse 78 11/30/23 13:09 Pulse Ox 97 11/30/23 13:09 Oxygen Delivery Method Room Air 11/30/23 13:09 BMI result Body Mass Index 41.3 Const General: cooperative and no acute distress Orientation/consciousness: patient oriented x3 Resp Effort & Inspection: normal respiratory effort and able to speak in complete sentences Neuro Other: Photophobic Left occipital and left neck palpable tenderness. Bilateral marked posterior cervical tightness. Cervical ROM: limited, extension elicits discomfort moving down neck. General: patient oriented x3 Cranial nerves: Yes CN's II-XII intact bilaterally Cognition (Neuro): normal cognition Deep tendon reflexes (DTR's): Right triceps reflex intensity grade: 1+, Left triceps reflex intensity grade: 1+, Rt Biceps (C5, C6): 1+, Left biceps reflex i ntensity grade: 1+, Right brachioradialis reflex intensity grade: 1+, Left brachioradialis reflex intensity grade: 1+, Right patellar reflex intensity grade: 1+ and Left patellar reflex intensity grade: 1+ Psych Appearance: grossly normal Mental Status: mental status grossly normal Speech and movement: Normal speech and movement present Affect: normal affect Attitude: cooperative Assessment & Plan Assessment & Plan (1) Migraine with aura, not intractable, without status migrainosus: Code(s): G43.109 - Migraine with aura, not intractable, without status migrainosus Category: Medical (2) Cervicalgia: Code(s): M54.2 - Cervicalgia Category: Medical (3) Nocturnal hypoxemia: Code(s): G47.34 - Idiopathic sleep related nonobstructive alveolar hypoventilation Category: Medical Plan For new onset nocturnal headache: Pt denies positional component. Likely cervicogenic. C-spine MRI per [facility]. Will order PT eval & Tx. Trial taking Baclofen 20mg qhs x's 1-2 weeks. F9or blurry vion: f/u w/ her eye provider. ? For low back pain: Continue Baclofen to 20mg bid (or 5mg bid and 10mg qhs) ? For headaches: Continue Topiramate 50mg bid. Continue Amitriptyline 30mg qhs. Resume Riboflavin 400mg qam. Resume Mag Ox 400mg qhs- may help nocturnal NAVAS and cervicalgia as well. Continue Aimovig 140mg prn. Continue Rizatriptan prn Hold Sumatriptan to 100mg- 1/2-1 tab prn. ? For sleep: Pt may benefit from resuming CPAP, as this may help nocturnal headaches. Pt in-lab sleep study showed AHI 3/hr, REM AHI 30/hr, and O2 himanshu 73%. HST showed AHI 3/hr, O2 himanshu 69%, Average SpO2 93%. [id number] w/ Dr Clements as scheduled. For h/o transient episodes of AMS w/o LOC: Continue Depakote ER 500mg bid and Topiramate 50mg bid. CBC, CMP, Depakote levels- WNL ? f/u in 6 months or sooner prn. Orders: Orders PT Evaluation and Treatment Today G43.109 - Migraine with aura, not intractable, without status migrainosus, M54.2 - Cervicalgia Medications: New magnesium oxide may hold for loose stools 400 mg PO BEDTIME 30 days 30 tabs 6RF riboflavin (vitamin B2) 400 mg PO DAILY 30 days 30 tabs 6RF Refilled topiramate 50 mg PO BID 90 days 180 tabs 1RF rizatriptan max 2 tabs per day or 4 tabs per week 5 - 10 mg (0.5 - 1 x 10 mg) PO Q2H 21 days PRN 12 tabs 6RF migraine headache Discontinued sumatriptan succinate 1/2 - 1 tab at onset of migraine; if no relief may repeat after 2 hrs; max 2 tabs/24 hrs or 4 tabs/week Discontinued Reason: Doctor's Order 50 - 100 mg (0.5 - 1 x 100 mg) PO Q2H PRN 12 tabs 6RF migraine headache Coding Level of Care Code Est Pt Level 4 (24762) Diagnoses Migraine with aura, not intractable, without status migrainosus G43.109 Cervicalgia M54.2 Nocturnal hypoxemia G47.34
== END 2023-11-30 13:51 | disposition home or self-care (01) ==
PROVIDERS: PCP Internal Medicine; Visit Provider Nurse Practitioner Family
DX: G43.109 Migraine with aura, not intractable, without status migrainosus (principal); M54.2 Cervicalgia; G47.34 Idiopathic sleep related nonobstructive alveolar hypoventilation
CPT/HCPCS: 99214

== ENCOUNTER → 2023-11-30 12:54 | Outpatient (BNVA) | payer OTHER, SELFPAY | PROVIDERS: PCP Internal Medicine; Visit Provider Nurse Practitioner Family | DX: G43.109 Migraine with aura, not intractable, without status migrainosus (principal); G47.34 Idiopathic sleep related nonobstructive alveolar hypoventilation; M54.2 Cervicalgia | CPT/HCPCS: 99212 ==

== ENCOUNTER 2024-06-08 14:33 | Outpatient (AMB) | payer OTHER, SELFPAY ==
[2024-06-08 14:42] VITALS: BP 130/90; PULSE 86; O2SAT 98; BMI 37.4
--- NOTE | 2024-06-08 14:42 | A.OFFVIS_ITS ---
Vital Signs 3 06/08/24 14:42 Height 5 ft 6.5 in Weight 235 lb BMI 37.4 BP 130/90 H Blood Pressure Location Lt brachial Position Sitting Pulse 86 Pulse Source Pulse Oximeter Pulse Oximetry (%) 98 Oxygen Delivery Method Room Air Intake Visit Reasons: Follow Up 6mo Intake Note: patient following up on PT . patient requested [facility] in [facility] in [place]. called for notes they do not accept her insurance. call out to patient asking if she made appt. [facility] [employer] Operator Required: No Accompanied by: Self / Same As Patient Allergies aspirin Allergy (Severe, Verified 11/30/23 13:11) Anaphylaxis corn Allergy (Severe, Verified 11/30/23 13:11) anaphylaxis pineapple Allergy (Severe, Verified 11/30/23 13:11) Hives seafood Allergy (Severe, Verified 11/30/23 13:11) anaphylaxis heparin Allergy (Mild, Verified 11/30/23 13:11) Unknown Latex, Natural Rubber Allergy (Mild, Verified 11/30/23 13:11) unknown nitrofurantoin [From Macrobid] Allergy (Mild, Verified 11/30/23 13:11) unknown Medication List - Last Reconciled 06/08/24 by LINDA Haynes albuterol sulfate 0.63 mg inhalation Q4-6H PRN albuterol sulfate 90 mcg/actuation 2 puffs inhalation Q6H PRN amitriptyline 30 mg (3 x 10 mg) PO BEDTIME 30 days baclofen 20 mg (2 x 10 mg) PO BEDTIME PRN 90 days celecoxib (Celebrex) 50 mg PO DAILY clonazepam (Klonopin) 1 mg PO BID cyanocobalamin (vitamin B-12) (Vitamin B-12) 1,000 mcg PO DAILY erenumab-aooe (Aimovig Autoinjector) 140 mg subcut monthly; 30 days magnesium oxide 400 mg PO BEDTIME 30 days meloxicam 15 mg PO DAILY mirabegron ER (Myrbetriq) 25 mg PO DAILY mirtazapine 45 mg PO DAILY omeprazole 20 mg PO DAILY riboflavin (vitamin B2) 400 mg PO DAILY 30 days risperidone 2 mg PO BEDTIME rizatriptan 5 - 10 mg (0.5 - 1 x 10 mg) PO Q2H PRN 21 days topiramate 50 mg PO BID 90 days tretinoin 0.025% appl topical vitamin A palmitate 10,000 units PO DAILY zafirlukast 20 mg PO BID HPI Comments Details: 58-yr-old female presents for f/u visit of migraine, cervicogenic headache, episodes of AMS, history of MAX. Pt reports she underwent emergency lap-cholecystectomy on May 28, 2023- states she was having abd pain x's 1 week prior to presenting to the [facility] ER. She is still having RUQ post-sx abd pain- states she is eating a little bit. Having some difficulty sleepy d/t the pain. She has Tramadol for pain. She states she was advised to hold her atorvastatin and Depakote per the hospital. Review of her inpatient labs showed normal LFTs, normal Depakote level 60s, elevated ammonia level at 42. Patient states she has not taken alcohol in a long time. She is taking Depakote for years for management of bipolar disorder- prior 2 episodes of altered mental status. 08/27/[address] w/o- unremarkable. She has not had any altered mental status. She states her migraines have been ok- stable. Baseline headache characteristics: Moderate to severe pounding headache a/w photophobia, phonophobia, N/V. Just wants to lay down in a dark quiet room. She has been having some dizziness. States her neck pain is stable- continues to be f/b [facility]. States that the c- spine MRI showed some degenerative changes/disc issues but does not need surgery. She is using her CPAP- followed by pulmonology. [facility] Medical History (Updated 06/08/24 @ 18:25 by LINDA Haynes) History of ETOH abuse Surgical History (Updated 06/08/24 @ 14:46 by Blanca Salcedo CMA) Hx of cholecystectomy H/O breast biopsy S/P right rotator cuff repair H/O heart surgery Total knee replacement status H/O: hysterectomy Family History Father HTN (hypertension) Mother Chronic mental illness Depression Anxiety Family/Other Chronic mental illness Depression Anxiety Schizophrenia Social History Alcohol intake: never Patient Tobacco Use Status: Never used Tobacco Physical Exam Vital Signs: Last Vital Signs Pulse 86 06/08/24 14:42 BP 130/90 H 06/08/24 14:42 Pulse Ox 98 06/08/24 14:42 Oxygen Delivery Method Room Air 06/08/24 14:42 BMI result Body Mass Index 37.4 Const Other: Patient presents as uncomfortable, holding/bracing RUQ abdomen. General: cooperative Orientation/consciousness: patient oriented x3 Resp Effort & Inspection: normal respiratory effort and able to speak in complete sentences Neuro Other: Stand slowly, steady with cane General: patient oriented x3 Cranial nerves: Yes CN's II-XII intact bilaterally Cognition (Neuro): normal cognition Psych Appearance: grossly normal Mental Status: mental status grossly normal Speech and movement: Normal speech and movement present Affect: normal affect Attitude: cooperative Results Reviewed Results Reviewed: Assessment & Plan Assessment & Plan (1) Migraine with aura, not intractable, without status migrainosus: Code(s): G43.109 - Migraine with aura, not intractable, without status migrainosus Category: Medical (2) Cervicalgia: Code(s): M54.2 - Cervicalgia Category: Medical (3) Increased ammonia level: Code(s): R79.89 - Other specified abnormal findings of blood chemistry Category: Medical (4) Acute cholecystitis: Comment: Status post emergency lap-cholecystectomy Code(s): K81.0 - Acute cholecystitis Category: Medical (5) RUQ abdominal pain: Code(s): R10.11 - Right upper quadrant pain Category: Medical Plan Reviewed recent [facility] reports and lab results. Encouraged patient to continue to rest, move as able, take plenty of fluids, and increase dietary intake slowly. Acknowledged that it is common to have residual abdominal pain status post acute cholecystitis requiring emergency cholecystectomy. Labs results were notable for mildly elevated ammonia level, leukocytosis, and normal Depakote level. Advise patient to recheck CBC, CMP, ammonia level within the next week-lab slip given to patient she needs a these at [facility] or [facility] lab. Did not order Depakote level, as patient has not taken this since hospital discharge. If ammonia levels remain elevated, we may need to discuss with patient's psychiatrist who initially order the Depakote. For h/o transient episodes of AMS w/o LOC: Continue Topiramate 50mg bid. Depakote on hold-as above ? For overall migraine and cervicogenic headache: Reviewed interval head CT- unremarkable. Follow-up with orthopedics as scheduled. For migraine prevention treatment: Continue Topiramate 50mg bid. Continue Amitriptyline 30mg qhs. Riboflavin 400mg qam. Mag Ox 400mg qhs- may help nocturnal NAVAS and cervicalgia as well. Continue Aimovig 140mg prn. For acute migraine treatment: Continue Rizatriptan prn Baclofen 10-20 mg daily at bedtime as needed for muscle spasm, nocturnal migraine/headache. Previous trials: Sumatriptan to 100mg- ineffective. ? For sleep: Patient states she is using her CPAP machine again- I am unable to access her recent PAP compliance data. We will try to request from [facility]. 01/21/2023, in-lab sleep study showed AHI 3/hr, REM AHI 30/hr, and O2 himanshu 73%. 05/19/2022, HST showed AHI 3/hr, O2 himanshu 69%, Average SpO2 93%. [id number] w/ Dr Clements as scheduled. For low back pain: Continue Baclofen to 20mg bid (or 5mg bid and 10mg qhs) Will follow-up upon review of above and patient to follow-up in clinic in 6 months or sooner prn. Orders: Orders 2 Comprehensive Met. Panel Today K81.0 - Acute cholecystitis, R10.11 - Right upper quadrant pain, R79.89 - Other specified abnormal findings of blood chemistry Complete Blood Count Auto Diff Today K81.0 - Acute cholecystitis, R10.11 - Right upper quadrant pain, R79.89 - Other specified abnormal findings of blood chemistry Ammonia Today K81.0 - Acute cholecystitis, R10.11 - Right upper quadrant pain, R79.89 - Other specified abnormal findings of blood chemistry Coding Level of Care Code Est Pt Level 4 (60391) Diagnoses Migraine with aura, not intractable, without status migrainosus G43.109 Cervicalgia M54.2 Increased ammonia level R79.89 Acute cholecystitis K81.0 RUQ abdominal pain R10.11
--- OUTSIDE RECORDS SUMMARY | 2024-06-08 16:48 | XMS_ITS | Clinical Summary ---
Author Organization [facility] Address [address] [place] [phone] Phone Care Team Providers Care Carrier Blower Name Role Phone Patito Long DO Primary Care Pro vider Allergies Active Allergy Reactions Criticality Noted Date Comments Aspirin 05/27/2013 [place] Containing Products 05/27/2013 Allergic to corn Latex 05/01/2022 Nitrofurantoin Monohyd/M-Cryst 05/27/2013 Other 01/07/2024 Seafood= throat swelling Pineapple 05/27/2013 Pomegranate Swelling 05/27/2024 Pseudoephedrine-Acetaminophen 2022 Medications VITAMIN B COMPLEX ORAL Take by mouth. Ac tive meloxicam (MOBIC) 15 mg tablet Take 1 tablet (15 mg total) by mouth at bedtime as needed for mild pain. Active RIBOFLAVIN, VITAMIN B2, ORAL Take by mouth. Active atorvastatin (LIPITOR) 20 mg tablet 2 Active baclofen (LIORESAL) 10 mg tablet Take 1 tablet (10 mg total) by mouth 1 (one) time each day if needed for muscle spasms. 1 Active cholecalciferol (VITAMIN D-3) 125 mcg (5,000 unit) capsule Take by mouth. A ctive clonazePAM (KlonoPIN) 1 mg tablet Take 1 tablet (1 mg total) by mouth 2 (two) times a day if needed for anxiety. Take 1mg daily as needed + 2mg at bedtime 0 Active divalproex (DEPAKOTE) [address] tablet Take 2 Tabs by mouth daily. 0 Active EPINEPHrine (EpiPen 2-Rudy) 0.3 mg/0.3 mL injection Inject 1 Applicator as directed as needed (allergic reaction). 1 Active fluticasone-salm eterol (ADVAIR DISKUS) 250-50 mcg/dose diskus inhaler Inhale 1 puff by mouth 1 (one) time each day. Active latanoprost (XALATAN) 0.005 % ophthalmic solution Administer 1 drop into both eyes at bedtime. Active mirtazapine (REMERON) 45 mg tablet Take 1 tablet (45 mg total) by mouth at bedtime. 0 Active omeprazole (PriLOSEC) [address] capsule Take 1 capsule (20 mg total) by mouth at bedtime. 2 Active risperiDONE (RisperDAL) 2 mg tablet Take 1 tablet (2 mg total) by mouth at bedtime. Active tretinoin (RETIN-A) 0.025 % cream Apply topically at bedtime. Active metFORMIN (FORTAMET) 500 mg 24 hr tablet Take 1 tablet (500 mg total) by mouth 1 (one) time each day with dinner. Do not crush, chew, or split. Active zafirlukast (ACCOLATE) 10 mg tablet TOME 1 TABLETA POR VIA ORAL DOS VECES AL ANGELES 180 tablet 2 5 Active Additional Information Patient taking differently: 10 mg oral 2 times daily PRN, Take 10mg daily + 10mg as needed, Reported on 05/27/2024 albuterol HFA (PROAIR HFA ; PROVENTIL HFA ; VENTOLIN HFA) 90 mcg/actuation inhaler PLEASE SEE ATTACHED FOR DETAILED DIRECTIONS 5 Active amitriptyline (ELAVIL) 10 mg tablet Take 3 tablets (30 mg total) by mouth at bedtime. FOR MIGRAINE 5 Active buPROPion XL (WELLBUTRIN XL) 300 mg 24 hr tablet Take 1 tablet (300 mg total) by mouth 1 (one) time each day. 5 Active Aimovig Autoinjector 140 mg/mL injection Inject 1 mL (140 mg total) under the skin every 30 (thirty) days. 2 Active Estring 2 mg (7.5 mcg /24 hour) vaginal ring Insert 2 mg into the vagina every 3 (three) months. 4 Active magnesium oxide (MAG-OX) 400 mg (241.3 elemental magnesium) tablet Take 1 tablet (400 mg total) by mouth at bedtime. 5 Active Gavilax 17 gram/dose oral powder Take 17 g by mouth 1 (one) time each day if needed for constipation. 5 Active topiramate (TOPAMAX) 50 mg tablet Take 2 tablets (100 mg total) by mouth 2 (two) times a day. 2 Active atorvastatin (LIPITOR) 40 mg tablet Take 1 tablet (40 mg total) by mouth at bedtime. 5 Active cholecalciferol (VITAMIN D-3) 50 mcg (2,000 unit) capsule Take 1 capsule (2,000 Units total) by mouth 1 (one) time each day. Active divalproex (DEPAKOTE ER) 500 mg 24 hr tablet Take 2 tablets (1,000 mg total) by mouth at bedtime. 9 Active riboflavin (VITAMIN B2) 400 mg tablet Take 1 tablet (400 mg total) by mouth 1 (one) time each day. Active rizatriptan (MAXALT) 10 mg tablet Take 1 tablet (10 mg total) by mouth 1 (one) time if needed for migraine. Active zolpidem (AMBIEN) 10 mg tablet Take 1 tablet (10 mg total) by mouth at bedtime. Active cyclobenzaprine (FLEXERIL) 5 mg tablet Take 1 tablet (5 mg total) by mouth at bedtime as needed for muscle spasms. 5 Active Myrbetriq 25 mg 24 hr tablet Take 1 tablet (25 mg total) by mouth 1 (one) time each day. Active traMADoL (ULTRAM) 50 mg tablet Take 1 tablet (50 mg total) by mouth every 6 (six) hours if needed for moderate pain. Max Daily Amount: 200 mg 10 tablet 5 Active docusate sodium (COLACE) 100 mg capsule Take 1 capsule (100 mg total) by mouth 2 (two) times a day. 14 each 5 Active Active Problems Problem Noted Date Diagnosed Date Acute cholecystitis 05/30/2024 B12 deficiency 01/07/2024 Hyperlipidemia 01/07/2024 Overview (01/07/2024): Last Assessment & Plan: Patient's LDL is elevated on her last check in our medical record system however this is somewhat outdated. She remains on a moderate intensity statin. Continue the same. Thrombocytopenia, acquired 01/07/2024 Other chest pain 01/04/2021 Overview (01/07/2024): Last Assessment & Plan: As I noted this patient does have a history of chest pain going back for quite some time. Exact etiology is not clear although I do not think it is ischemic mediated. She did have a negative dobutamine stress echocardiogram 2020. She is able to exercise a fair amount on the treadmill with no symptoms. However she is going to be having weight reduction surgery. I do think given the fact that she continues to have these chest pains that I want to schedule for stress test. She states she is able to walk on a treadmill now I will do a nuclear stress test. I do not think is due to coronary spasm given the fact that she does have a history of migraines I am going to schedule her for a monitor. Also going to do an echocardiogram. SOB (shortness of breath) on exertion 01/03/2021 Overview (01/07/2024): Last Assessment & Plan: Patient also does get short of breath with exertion. Apparently she does have a history of asthma. She did undergo a CT angiogram the past several months and there is no evidence for pulmonary embolism. On exam her lungs are clear and she does not appear to be anemic. Erosive osteoarthritis 11/18/2020 Carpal tunnel syndrome, bilateral 11/13/2020 Fibromyalgia 11/13/2020 Lumbar spondylolysis 11/13/2020 Alcohol abuse, in remission 10/25/2020 Tremor 10/25/2020 Obstructive sleep apnea 02/28/2020 Left shoulder pain 10/26/2015 Obesity 10/26/2015 Bipolar disorder 08/10/2013 Overview (01/07/2024): Dr. Martin eureka psych visits q mo. Asthma 05/27/2013 GERD (gastroesophageal reflux disease) 4 Migraine with aura 05/27/2013 Overview (01/07/2024): [facility] Resolved Problems Problem Noted Date Diagnosed Date Resolved Date Generalized abdominal pain 05/27/2024 0 05/29/2024 Acute cholecystitis 05/27/2024 05/30/19 25 Encounters Date Type Department Care Team Description 05/27/2024 5:20 PM EDT Anesthesia Event [facility] Main OR [address] [place] [phone] Sunny Simmons MD 05/27/2024 5:00 PM EDT - 05/27/2024 7:10 PM EDT Surgery [facility] Main OR [address] [place] [phone] Mark Robertson MD CHOLECYSTECTOMY LAPAROSCOPIC 05/27/2024 6:08 AM EDT - 05/31/2024 2:12 PM EDT Hospital Encounter [facility] Medical Surgical Unit [address] [place] [phone] Shyanne Mahmood MD Flores, Carlos M, MD Nasser, Nada S, MD White, Cullen D, DO Generalized abdominal pain (Primary Dx); Acute cholecystitis; Tachycardia Discharge Disposition: Home-Health Care [facility] from Last 3 Months Immunizations Name Administration Dates Next Due Influenza Quadravalent, MDCK , 0.5ml, with preservative (Flucelvax) 6mo and older 11/29/2017,12/28/2016 Influenza trivalent, 0.5mL, preservative free (Fluarix; FluLaval; Fluzone) ages 6mo and older (Afluria) 3 years and older 11/24/2015,01/10/2015,12/07/2013 Influenza trivalent, with pr eservative (Fluzone; Afluria) 6mo and older 11/08/2018 Influenza, Unspecified 10/22/2020 Pneumococcal conjugate 13 va lent (Prevnar 13, PCV13) 2mo and older 06/28/2015 Pneumococcal polysaccharide 23 valent (Pneumovax 23) 2yo and older 05/23/2019 Tdap Tetanus diptheria acell ular pertussis (Boostrix; Adacel) 7yo and older 05/08/2014 Zoster Live 12/28/2013 Surgical History Surgery Date Site/Laterality Comments CARDIAC SURGERY 2008 PROCEDURE: HISTORICAL HEART SURGERY(ASD,VSD,VALVES); COMMENT: Blood clot in the heart per patient HYSTERECTOMY PROCEDURE: HISTORICAL HYSTERECTOMY COLONOSCOPY 10/23/2015 PROCEDURE: HISTORICAL COLONOSCOPY; COMMENT: anal fissure otherwise normal, repeat in 10 yrs TOTAL KNEE ARTHROPLASTY 2019 Left PROCEDURE: MS ARTHRP KNE CONDYLE&PLATU MEDIAL&LAT COMPARTMENTS Medical History Medical History Date Comments Knee pain, left 05/27/2013 DX:Knee pain, le ft Migraine DX:Migraine; COM MENT: dr payton Left knee pain DX:Left knee eliazar n Asthma DX:Asthma Psychiatric disorder DX:Psychiat priscilla disorder; COMMENT: bipolar d/o History of pulmonary embolus (PE) 2008 DX:History of pulmonary embolus (PE); COMMENT: [facility] in [place] on coumadin x 2 yrs. History of anemia DX:History of anemia Thrombocytopenia, acquired (CMS/HCC) DX:Thrombocytopenia, acquired (HCC) B12 deficiency DX:B12 deficienc y Dyslipidemia DX:Dyslipidemia Esophageal reflux DX:Esophageal reflux Hyperlipidemia DX:Hyperlipidemi a Tremor 10/25/2020 DX:Tremor Alcohol abuse, in remission 10/25/2020 DX:A lcohol abuse, in remission Lumbar spondylolysis DX:Lumbar s pondylolysis Diabetes mellitus (CMS/HCC) MAX (obstructive sleep apnea) Fibromyalgia Bipolar disorder Family History Medical History Relation Name Comments Hypertension Brother Asthma Father htn, colon poly ps at 60 Hypertension Father Cataracts Maternal Grandfather Cataracts Maternal Grandmother Glaucoma Maternal Grandmother Arthritis Mother Other: alive and well Mother Arthri tis Colon cancer Paternal Grandfather prostat e cancer Relation Name Status Comments Brother Alive Father Maternal Grandfather Maternal Grandmother Mother Paternal Grandfather Social History Tobacco Use Types Packs/Day Years Used Date Smoking Tobacco: Former Cigarettes Q uit: 08/30/2020 Smokeless Tobacco: Never Alcohol Use Standard Drinks/Week Comments No 0 (1 standard drink = 0.6 oz pur e alcohol) Interpersonal Safety Answer Date Record ed Physical Abuse 05/27/2024 Verbal Abuse 05/27/2024 Comments Unknown Sex and Gender Information Value Date Recorded Sex Assigned at Not on file Legal Sex Female 8:58 AM EST Gender Identity Not on file Sexual Orientation Not on file Obstetrics History Last Filed Vital Signs Vital Sign Reading Time Taken Comments Blood Pressure 127/83 05/31/2024 9:25 AM EDT Pulse 90 05/31/2024 9:25 AM EDT Temperature 36.5 ??C (97.7 ??F) 05/31/2024 7:50 AM ED T Respiratory Rate 17 05/31/2024 7:50 AM EDT Oxygen Saturation 100% 05/31/2024 9:25 AM EDT Inhaled Oxygen Concentration - - Weight 108 kg (238 lb 9.6 oz) 05/27/2024 6:00 AM EDT Height 170.2 cm (5' 7 ) 05/27/2024 6:00 AM EDT Body Mass Index 37.37 05/27/2024 6:00 AM EDT Plan of Treatment Upcoming Encounters Date Type Department Care Team (Late st Contact Info) Description 06/14/2024 10:45 AM EDT Office Visit Bariatric Surgery [facility] [place] [address] [phone] Shyanne Mahmood MD [address] [phone] 08/12/2024 9:30 AM EDT Office Visit Pulmonolgy - [place] [address] [phone] Kumar Clements MD [address] [phone] Health Maintenance Due Date Last Done Comments Breast Cancer Screening 1965 Hepatitis A Vaccines (1 of 2 - Risk 2-dose series) 1985 Zoster Vaccines (2 of 2) 12/15/2018 10/20/2018, 12/01 Cervical Cancer Screening: Pap Smear 11/08/2021 11/08/2018 Depression Screening 02/08/2022 HIV Screening 02/08/2022 Medicare Annual Wellness Visit 02/08/2022 Social Influencers of Health Screening 02/08/2022 DTaP,Tdap,and Td Vaccines (2 - Td or Tdap) 05/08/2024 05/08/2014 Cholesterol Screening (Lipid Panel) 09/07/2024 09/08/2019 Colorectal Cancer Screening: Colonoscopy 10/22/2025 10/23/2015 Hepatitis B Vaccines Completed 12/15/2012, 07/14/2012, 06/14/2012 Hepatitis C Screening Completed 02/07/2015 Pneumococcal Vaccine: 50+ Years Completed 08/19/2022, 05/23/2019, 06/28/2015, Additional history exists Pneumococcal Vaccine: Pediatrics (0 to 5 Years) and At-Risk Patients (6 to 64 Years) Completed 08/19/2022, 05/23/2019, 06/28/2015, Additional history exists COVID-19 Vaccine Completed 11/20/2023, , 10/20/2022, Additional history exists Influenza Vaccine Completed 11/20/2023, , 11/05/2021, Additional history exists HIB Vaccines Aged Out No longer eligi ble based on patient's age to complete this topic HPV Vaccines Aged Out No longer eligi ble based on patient's age to complete this topic IPV Vaccines Aged Out No longer eligi ble based on patient's age to complete this topic MMR Vaccines Aged Out No longer eligi ble based on patient's age to complete this topic Meningococcal ACWY Vaccine Aged Out N o longer eligible based on patient's age to complete this topic Meningococcal B Vaccine Aged Out No l onger eligible based on patient's age to complete this topic RSV Immunization Patients Under 20 months Aged Out No longer eligible based on patient's age to complete this topic Varicella Vaccines Aged Out No longer eligible based on patient's age to complete this topic Procedures Procedure Name Priority Date/Time Associated Diagnosis Comments ECG ANNOTATED 06/01/2024 POCT GLUCOSE BLOOD Routine 05/31/2024 11 :08 AM EDT POCT GLUCOSE BLOOD Routine 05/31/2024 7: 51 AM EDT POCT GLUCOSE BLOOD Routine 05/30/2024 7: 39 PM EDT POCT GLUCOSE BLOOD Routine 05/30/2024 4: 15 PM EDT POCT GLUCOSE BLOOD Routine 05/30/2024 11 :11 AM EDT POCT GLUCOSE BLOOD Routine 05/30/2024 7: 38 AM EDT CBC WITH AUTO DIFFERENTIAL Routine 05/30/2024 5:28 AM EDT COMPREHENSIVE METABOLIC PANEL Routine 05/30/2024 5:28 AM EDT CBC AND DIFFERENTIAL Routine 05/30/2024 5:28 AM EDT POCT GLUCOSE BLOOD Routine 05/29/2024 7: 52 PM EDT AMMONIA STAT 05/29/2024 5:37 PM EDT THYROID STIMULATING HORMONE WITH REFLEX TO FREE T4 AND FREE T3 Add-On 05/29/2024 5:35 PM EDT SST - GOLD Routine 05/29/2024 5:35 PM EDT EXTRA TUBES Routine 05/29/2024 5:35 PM EDT ECG 12-LEAD STAT 05/29/2024 5:31 PM EDT POCT GLUCOSE BLOOD Routine 05/29/2024 3: 54 PM EDT POCT GLUCOSE BLOOD Routine 05/29/2024 11 :21 AM EDT POCT GLUCOSE BLOOD Routine 05/29/2024 7: 25 AM EDT VALPROIC ACID LEVEL, TOTAL Add-On 05/29/2024 5:22 AM EDT THYROID STIMULATING HORMONE Add-On 05/29/2024 5:22 AM EDT CBC WITH AUTO DIFFERENTIAL Routine 05/29/2024 5:22 AM EDT CBC AND DIFFERENTIAL Routine 05/29/2024 5:22 AM EDT BASIC METABOLIC PANEL Routine 05/29/2024 5:22 AM EDT MAGNESIUM Routine 05/29/2024 5:22 AM EDT PHOSPHORUS Routine 05/29/2024 5:22 AM EDT POCT GLUCOSE BLOOD Routine 05/28/2024 8: 21 PM EDT POCT GLUCOSE BLOOD Routine 05/28/2024 4: 27 PM EDT ECG 12-LEAD Routine 05/28/2024 2:13 PM EDT POCT GLUCOSE BLOOD Routine 05/28/2024 11 :02 AM EDT POCT GLUCOSE BLOOD Routine 05/28/2024 8: 31 AM EDT MANUAL DIFFERENTIAL - SYSMEX WAM Routine 05/28/2024 5:17 AM EDT CBC WITH AUTO DIFFERENTIAL Routine 05/28/2024 5:17 AM EDT BASIC METABOLIC PANEL Routine 05/28/2024 5:17 AM EDT CBC AND DIFFERENTIAL Routine 05/28/2024 5:17 AM EDT PHOSPHORUS Routine 05/28/2024 5:17 AM EDT MAGNESIUM Routine 05/28/2024 5:17 AM EDT LACTATE STAT 05/27/2024 9:12 PM EDT POCT GLUCOSE BLOOD Routine 05/27/2024 9: 00 PM EDT ARTERIAL BLOOD GAS STAT 05/27/2024 7: 59 PM EDT OXYGEN THERAPY, ADULT Routine 05/27/2024 7:29 PM EDT OXYGEN THERAPY, ADULT Routine 05/27/2024 7:29 PM EDT TISSUE EXAM Routine 05/27/2024 6:30 PM EDT Acute cholecystitis TH AN ENDOTRACHEAL(NO CHARGE) Routine 05/27/2024 5:52 PM EDT CHOLECYSTECTOMY LAPAROSCOPIC 05/27/2024 5:21 PM EDT Acute cholecystitis POCT GLUCOSE BLOOD Routine 05/27/2024 3: 45 PM EDT POTASSIUM Routine 05/27/2024 2:06 PM EDT POCT GLUCOSE BLOOD Routine 05/27/2024 12 :[address] ANGIO CHEST/ABDOMEN/PELVIS WO AND/OR W CONTRAST STAT 05/27/2024 9:18 AM EDT Generalized abdominal pain GUEVARA URINE CULTURE TUBE STAT 05/28/19 8:11 AM EDT URINALYSIS WITH REFLEX MICROSCOPIC AND CULTURE STAT 05/27/2024 8:11 AM EDT URINALYSIS WITH REFLEX MICROSCOPIC AND CULTURE STAT 05/27/2024 8:11 AM EDT CULTURE URINE STAT 05/27/2024 8:11 AM EDT TROPONIN I HIGH SENSITIVITY STAT 05/27/2024 7:38 AM EDT ECG 12-LEAD STAT 05/27/2024 7:32 AM EDT XR CHEST 1 VIEW STAT 05/27/2024 7:05 AM EDT LACTATE, WITH REFLEX STAT 05/27/2024 6:52 AM EDT MANUAL DIFFERENTIAL - SYSMEX WAM STAT 05/27/2024 6:24 AM EDT CBC WITH AUTO DIFFERENTIAL STAT 05/27/2024 6:24 AM EDT B-TYPE NATRIURETIC PEPTIDE STAT 05/27/2024 6:24 AM EDT MAGNESIUM STAT 05/27/2024 6:24 AM EDT LIPASE STAT 05/27/2024 6:24 AM EDT COMPREHENSIVE METABOLIC PANEL STAT 05/27/2024 6:24 AM EDT CBC AND DIFFERENTIAL STAT 05/27/2024 6:24 AM EDT TROPONIN I HIGH SENSITIVITY STAT 05/27/2024 6:24 AM EDT ECG 12-LEAD STAT 05/27/2024 6:09 AM EDT LIPID PANEL Routine 09/08/2019 HM PAP SMEAR Routine 11/08/2018 HM COLONOSCOPY Routine 10/23/2015 HEPATITIS C SCREENING Routine 02/07/2015 from Last 3 Months or Most Recently Relevant to Health Maintenance Results * ECG-Annotated (06/01/2024) us Provider Onbase MD ECG ORDERABLES Final Result * (ABNORMAL) POCT Glucose, blood (05/31/2024 11:08 AM EDT) Only the most recent of17 resultswithin the time period is included. Glucose POCT 164(H) 70 - 100 mg/dL 05/31/2024 11:09 AM EDT [facility] Blood Capillary blood specimen / Unknown 05/31/2024 11:08 AM EDT 05/31/2024 11:10 AM EDT Yandel Del Angel MD LAB POINT OF CARE TE ST DOCKED DEVICE UNSOLICITED RESULTS Final Result [facility] [address] [place] [address], * (ABNORMAL) CBC auto differential (05/30/2024 5:28 AM EDT) Only the most recent of4 resultswithin the time period is included. WBC 11.5(H) 4.8 - 10.8 K/mcL LAB HEMETOLOGY METHOD 05/30/2024 6:36 AM EDT [facility] RBC 4.00 3.80 - 4.80 M/mcL LAB HEMETOLOGY METHOD 05/30/2024 6:36 AM EDT [facility] Hemoglobin 12.5 11.5 - 16.0 g/dL LAB HEMETOLOGY METHOD 05/30/2024 6:36 AM EDT [facility] Hematocrit 39.5 35.0 - 47.0 % LAB HEMETOLOGY METHOD 05/30/2024 6:36 AM EDT [facility] MCV 99.5(H) 79.0 - 98.0 FL LAB HEMETOLOGY METHOD 05/30/2024 6:36 AM EDT [facility] MCH 31.5 27.0 - 32.0 pcg LAB HEMETOLOGY METHOD 05/30/2024 6:36 AM EDT [facility] MCHC 31.6(L) 32.0 - 37.0 g/dL LAB HEMETOLOGY METHOD 05/30/2024 6:36 AM EDT [facility] RDW 13.1 11.0 - 15.0 % LAB HEMETOLOGY METHOD 05/30/2024 6:36 AM [facility] Platelets 352 130 - 400 K/mcL LAB HEMETOLOGY METHOD 05/30/2024 6:36 AM [facility] MPV 10.5 7.0 - 11.0 FL LAB HEMETOLOGY METHOD 05/30/2024 6:36 AM [facility] NRBC 0.0 <1.0 % LAB HEMETOLOGY METHOD 05/30/2024 6:36 AM [facility] NRBC Absolute 0.00 <0.10 K/mcL LAB HEMETOLOGY METHOD 05/30/2024 6:36 AM [facility] Neutrophils Relative 69.8 % LAB HEMETOLOGY METHOD 05/30/2024 6:36 AM [facility] Lymphocytes Relative 13.9 % LAB HEMETOLOGY METHOD 05/30/2024 6:36 AM [facility] Monocytes Relative 12.0 % LAB HEMETOLOGY METHOD 05/30/2024 6:36 AM [facility] Eosinophils Relative 0.9 % LAB HEMETOLOGY METHOD 05/30/2024 6:36 AM [facility] Basophils Relative 0.4 % LAB HEMETOLOGY METHOD 05/30/2024 6:36 AM [facility] Immature Granulocytes Relative 3.0 % LAB HEMETOLOGY METHOD 05/30/2024 6:36 AM [facility] Neutrophils Absolute 8.02(H) 1.50 - 7.00 K/mcL LAB HEMETOLOGY METHOD 05/30/2024 6:36 AM [facility] Lymphocytes Absolute 1.60 1.00 - 5.00 K/mcL LAB HEMETOLOGY METHOD 05/30/2024 6:36 AM [facility] Monocytes Absolute 1.38(H) 0.20 - 1.00 K/mcL LAB HEMETOLOGY METHOD 05/30/2024 6:36 AM EDT [facility] Eosinophils Absolute 0.10 0.00 - 0.50 K/[facility] HEMETOLOGY METHOD 05/30/2024 6:36 AM EDT [facility] Basophils Absolute 0.05 0.00 - 0.20 K/mcL LAB HEMETOLOGY METHOD 05/30/2024 6:36 AM EDT [facility] Immature Granulocytes Absolute 0.34(H) 0.00 - 0.03 K/[facility] LAB HEMETOLOGY METHOD 05/30/2024 6:36 AM EDT [facility] Blood Venous blood specimen / Unknown Venipuncture / Unknown 05/30/2024 5:28 AM EDT 05/30/2024 6:17 AM EDT Yary BARNES LAB BLOOD ORDERABLES Final Resu lt [facility] [address] [place] [address], * (ABNORMAL) Comprehensive metabolic panel (05/30/2024 5:28 AM EDT) Only the most recent of2 resultswithin the time period is included. Sodium 136 133 - 145 mmol/L LAB CHEMISTRY METHOD 05/30/2024 7:06 AM [facility] Potassium 4.1 3.5 - 5.5 mmol/L LAB CHEMISTRY METHOD 05/30/2024 7:06 AM [facility] Chloride 105 96 - 110 mmol/L LAB CHEMISTRY METHOD 05/30/2024 7:06 AM [facility] CO2 23 21 - 32 mmol/L LAB CHEMISTRY METHOD 05/30/2024 7:06 AM [facility] Anion Gap 8 3 - 11 LAB CHEMISTRY METHOD 05/30/2024 7:06 AM [facility] Glucose 133(H) 70 - 100 mg/dL LAB CHEMISTRY METHOD 05/30/2024 7:06 AM [facility] BUN 17 5 - 25 mg/dL LAB CHEMISTRY METHOD 05/30/2024 7:06 AM [facility] Creatinine 0.80 0.50 - 1.10 mg/dL LAB CHEMISTRY METHOD 05/30/2024 7:06 AM [facility] eGFR 86 >=60 mL/min/1. 73m2 LAB CHEMISTRY METHOD 05/30/2024 7:06 AM [facility] Comment:Calculation based on the??Chronic Kidney Disease Epidemiology Collaboration (CKD-EPI) equation refit??without adjustment for race. BUN/Creatinine Ratio 21.3 LAB CHEMISTRY METHOD 05/30/2024 7:06 AM [facility] Calcium 9.3 8.5 - 10.5 mg/dL LAB CHEMISTRY METHOD 05/30/2024 7:06 AM [facility] AST (SGOT) 27 10 - 42 unit/L LAB CHEMISTRY METHOD 05/30/2024 7:06 AM [facility] ALT (SGPT) 32 10 - 60 unit/L LAB CHEMISTRY METHOD 05/30/2024 7:06 AM [facility] Alkaline Phosphatase 75 42 - 121 unit/L LAB CHEMISTRY METHOD 05/30/2024 7:06 AM [facility] Total Protein 6.3 6.0 - 8.0 g/dL LAB CHEMISTRY METHOD 05/30/2024 7:06 AM [facility] Albumin 2.4(L) 3.2 - 5.0 g/dL LAB CHEMISTRY METHOD 05/30/2024 7:06 AM [facility] Total Bilirubin 0.4 0.0 - 1.4 mg/dL LAB CHEMISTRY METHOD 05/30/2024 7:06 AM [facility] Blood Venous blood specimen / Unknown Venipuncture / Unknown 05/30/2024 5:28 AM EDT 05/30/2024 6:17 AM EDT Yary BARNES LAB BLOOD ORDERABLES Final Resu lt Performing Organization Address [facility]/ZIP Co de Phone Number [facility] [address] [place] [address], [place] [phone] * (ABNORMAL) Ammonia (05/29/2024 5:37 PM EDT) Pathologist [facility] Ammonia 42(H) 11 - 35 mcmol/L LAB CHEMISTRY METHOD 05/29/2024 6:11 PM EDT [facility] Blood Venous blood specimen / Unknown Venipuncture / Unknown 05/29/2024 5:37 PM EDT 05/29/2024 5:48 PM EDT Fredi Benitez MD LAB BLOOD ORDERABLES Final Re sult Performing Organization Address [facility] Co de Phone Number [facility] [address] [place] [address], [place] [phone] * Thyroid stimulating hormone with reflex to free t4 and free t3 (05/29/2024 5:35 PM EDT) TSH 1.02 0.40 - 4.00 mcIU/mL LAB CHEMISTRY METHOD 05/29/2024 7:40 PM EDT [facility] Blood Venous blood specimen / Unknown 05/29/2024 5:35 PM EDT 05/29/2024 5:49 PM EDT Yary BARNES LAB BLOOD ORDERABLES Final Resu lt Performing Organization Address [facility]/ZIP Co de Phone Number [facility] [address] [place] [address], [place] [phone] * SST tube (05/29/2024 5:35 PM EDT) Extra Tube Hold for add-ons. 05/29/2024 7:01 PM EDT [facility] Comment:Auto resulted. Blood Venous blood specimen / Unknown 05/29/2024 5:35 PM EDT 05/29/2024 5:49 PM EDT us Fredi Benitez MD LAB BLOOD ORDERABLES Final Re sult [facility] [address] [place] [address], [place] [phone] * ECG 12 lead (05/29/2024 5:31 PM EDT) Only the most recent of4 resultswithin the time period is included. [facility] Ventricular Rate ECG 110 BPM GEMUSE Atrial Rate 110 BPM GEMUSE P-R Interval 164 ms GEMUSE QRS Duration 100 ms GEMUSE Q-T Interval 326 ms GEMUSE QTc 441 ms GEMUSE P Wave Dodson 22 degrees GEMUSE R Dodson -17 degrees GEMUSE T Dodson 39 degrees GEMUSE ECG Interpretation Sinus tachycardia Minimal voltage criteria for LVH, may be normal variant Poor R wave progression Abnormal ECG When compared with ECG of 28-MAY-2024 14:13, No significant change was found Confirmed by Roxann HERNANDEZ YUFENG ([id number]) on 05/29/2024 6:56:14 PM GEMUSE 05/29/2024 5:31 PM EDT 05/29/2024 6:56 PM EDT us Fredi Benitez MD ECG ORDERABLES Final Result Performing Organization Address City/[facility]/ZIP Co de Phone Number GEMUSE * Thyroid stimulating hormone (05/29/2024 5:22 AM EDT) [facility] TSH 1.07 0.40 - 4.00 mcIU/mL LAB CHEMISTRY METHOD 05/29/2024 7:21 PM EDT [facility] Blood Venous blood specimen / Unknown Venipuncture / Unknown 05/29/2024 5:22 AM EDT 05/29/2024 6:22 AM EDT Fredi Benitez MD LAB BLOOD ORDERABLES Final Re sult [facility] [address] [place] [address], [place] [phone] * Phosphorus (05/29/2024 5:22 AM EDT) Only the most recent of2 resultswithin the time period is included. Phosphorus 3.5 2.5 - 4.5 mg/dL LAB CHEMISTRY METHOD 05/29/2024 7:00 AM EDT [facility] Blood Venous blood specimen / Unknown Venipuncture / Unknown 05/29/2024 5:22 AM EDT 05/29/2024 6:22 AM EDT Elizabeth BARNES LAB BLOOD ORDERABLES Fin al Result Performing Organization Address [facility]/ZIP Co de Phone Number [facility] [address] [place] [address], [place] [phone] * Magnesium (05/29/2024 5:22 AM EDT) Only the most recent of3 resultswithin the time period is included. Magnesium 2.0 1.9 - 2.6 mg/dL LAB CHEMISTRY METHOD 05/29/2024 7:00 AM EDT [facility] Blood Venous blood specimen / Unknown Venipuncture / Unknown 05/29/2024 5:22 AM EDT 05/29/2024 6:22 AM EDT Elizabeth BARNES LAB BLOOD ORDERABLES Fin al Result [facility] [address] [place] [address], [place] [phone] * Valproic acid level, total (05/29/2024 5:22 AM EDT) Pathologist [facility] Valproic Acid, Total 66 50 - 100 mcg/mL LAB CHEMISTRY METHOD 05/29/2024 5:51 PM [facility] Blood Venous blood specimen / Unknown Venipuncture / Unknown 05/29/2024 5:22 AM EDT 05/29/2024 6:22 AM EDT us Fredi Benitez MD LAB BLOOD ORDERABLES Final Re sult [facility] [address] [place] [address], [place] [phone] * (ABNORMAL) Basic metabolic panel (05/29/2024 5:22 AM EDT) Only the most recent of2 resultswithin the time period is included. [facility] Sodium 137 133 - 145 mmol/L LAB CHEMISTRY METHOD 05/29/2024 7:00 AM [facility] Potassium 3.9 3.5 - 5.5 mmol/L LAB CHEMISTRY METHOD 05/29/2024 7:00 AM [facility] Chloride 105 96 - 110 mmol/L LAB CHEMISTRY METHOD 05/29/2024 7:00 AM [facility] CO2 24 21 - 32 mmol/L LAB CHEMISTRY METHOD 05/29/2024 7:00 AM [facility] Anion Gap 8 3 - 11 LAB CHEMISTRY METHOD 05/29/2024 7:00 AM [facility] Glucose 129(H) 70 - 100 mg/dL LAB CHEMISTRY METHOD 05/29/2024 7:00 AM [facility] BUN 15 5 - 25 mg/dL LAB CHEMISTRY METHOD 05/29/2024 7:00 AM [facility] Creatinine 0.58 0.50 - 1.10 mg/dL LAB CHEMISTRY METHOD 05/29/2024 7:00 AM EDT [facility] eGFR 106 >=60 mL/min/1. 73m2 LAB CHEMISTRY METHOD 05/29/2024 7:00 AM EDT [facility] Comment:Calculation based on the??Chronic Kidney Disease Epidemiology Collaboration (CKD-EPI) equation refit??without adjustment for race. BUN/Creatinine Ratio 25.9 LAB CHEMISTRY METHOD 05/29/2024 7:00 AM EDT [facility] Calcium 9.1 8.5 - 10.5 mg/dL LAB CHEMISTRY METHOD 05/29/2024 7:00 AM EDT [facility] Blood Venous blood specimen / Unknown Venipuncture / Unknown 05/29/2024 5:22 AM EDT 05/29/2024 6:22 AM EDT Elizabeth BARNES LAB BLOOD ORDERABLES Fin al Result [facility] [address] [place] [address], [place] [phone] * (ABNORMAL) Manual differential (05/28/2024 5:17 AM EDT) Only the most recent of2 resultswithin the time period is included. Neutrophils % 59.0 % LAB HEMETOLOGY METHOD 05/28/2024 7:48 AM EDT [facility] Lymphocytes % 17.0 % LAB HEMETOLOGY METHOD 05/28/2024 7:48 AM EDT [facility] Monocytes % 23.0 % LAB HEMETOLOGY METHOD 05/28/2024 7:48 AM EDT [facility] Eosinophils % 1.0 % LAB HEMETOLOGY METHOD 05/28/2024 7:48 AM EDT [facility] Basophils % 0.0 % LAB HEMETOLOGY METHOD 05/28/2024 7:48 AM EDT [facility] Myelocytes % 1.0(H) % LAB HEMETOLOGY METHOD 05/28/2024 7:48 AM EDT [facility] Neutrophils Absolute Manual 7.20(H) 1.50 - 7.00 K/mcL LAB HEMETOLOGY METHOD 05/28/2024 7:48 AM EDT [facility] Lymphocytes Absolute 2.07 1.00 - 5.00 K/mcL LAB HEMETOLOGY METHOD 05/28/2024 7:48 AM EDT [facility] Monocytes Absolute Manual 2.81(H) 0.20 - 1.00 K/mcL LAB HEMETOLOGY METHOD 05/28/2024 7:48 AM EDT [facility] Eosinophils Absolute Manual 0.12 0.00 - 0.50 K/mcL LAB HEMETOLOGY METHOD 05/28/2024 7:48 AM EDT [facility] Basophils Absolute Manual 0.00 0.00 - 0.20 K/mcL LAB HEMETOLOGY METHOD 05/28/2024 7:48 AM EDT [facility] Myelocytes Absolute Manual 0.12(H) 0.00 - 0.00 K/mcL LAB HEMETOLOGY METHOD 05/28/2024 7:48 AM EDT [facility] Rbc Morphology Consistent with indices Consistent with indices, Normal for LAB HEMETOLOGY METHOD 05/28/2024 7:48 AM EDT [facility] Platelet Morphology - WAM See Note(A) Normal LAB HEMETOLOGY METHOD 05/28/2024 7:48 AM EDT [facility] Comment:PLT: Normal Blood Venous blood specimen / Unknown Venipuncture / Unknown 05/28/2024 5:17 AM EDT 05/28/2024 6:17 AM EDT us Annia BARNES LAB BLOOD ORDERABLES Final R esult [facility] [address] [place] [address], [place] [phone] * Lactate (05/27/2024 9:12 PM EDT) [facility] Lactate 1.3 0.4 - 2.0 mmol/L LAB CHEMISTRY METHOD 05/27/2024 10:15 PM EDT [facility] Blood Venous blood specimen / Unknown Venipuncture / Unknown 05/27/2024 9:12 PM EDT 05/27/2024 9:41 PM EDT us Sunny Simmons MD LAB BLOOD ORDERABLES Final Res ult [facility] [address] [place] [address], [place] [phone] * (ABNORMAL) Arterial blood gas (05/27/2024 7:59 PM EDT) [facility] pH, Arterial 7.29(L) 7.35 - 7.45 pH 05/27/2024 8:07 PM EDT [facility] pCO2, Arterial 40 35 - 45 mmHg 05/27/2024 8:07 PM [facility] pO2, Arterial 85 80 - 100 mmHg 05/27/2024 8:07 PM [facility] HCO3, Arterial 19.4(L) 22.0 - 26.0 mmol/L 05/27/2024 8:07 PM T [facility] O2 Sat, Arterial 97.8 95.0 - 98.0 % 05/27/2024 8:07 PM EDT [facility] Base Excess, Arterial -7.0(L) -2.0 - 2.0 mmol/L 05/27/2024 8:07 PM T [facility] Yaron Test Pass Pass, Unresponsi ve, Line 05/27/2024 8[facility] FIO2 30.00 05/27/2024 8:07 PM EDT [facility] Blood Arterial blood specimen / Unknown Arterial Puncture / Unknown 05/27/2024 7:59 PM EDT 05/27/2024 8:02 PM EDT us Sunny Simmons MD LAB BLOOD ORDERABLES Final Res ult [facility] [address] [place] [address], [place] [phone] * Tissue exam (05/27/2024 6:30 PM EDT) Final Diagnosis A. Gallbladder, cholecystectomy: - Acute cholecystitis and cholelithiasis. 05/31/2024 12:24 PM EDT [facility] Gross Description A. Gallbladder, : Labeled gallbladder . Received in formalin is a 10.1 x 5.2 x 3.5 cm intact gallbladder, including attached cystic duct with a diameter of 0.2 cm at the margin. No periductal lymph node is identified. The lumen contains scant yellow-brown bile and a 3.1 cm ovoid yellow cholelith and moderate dusky green-brown debris. The mucosa is diffusely brown and velvety. The wall (muscularis) thickness measures up to 0.3 cm. The serosa is inked deepak, and the adventitial margin is inked green. Emblem Maker sections are submitted in one cassette including gallbladder (fundus, body and neck), duct margin (inked red), and cross section adjacent to duct margin (inked blue), five pieces. SARAH 05/31/2024 12:24 PM EDT [facility] Disclaimer Unless otherwise specified, all tissue is 10% NB formalin fixed and paraffin embedded. 05/31/2024 12:24 PM EDT [facility] Tissue Gallbladder structure / Unknown 05/27/2024 6:30 PM EDT 05/30/2024 5:39 AM EDT us Mark Robertson MD LAB PATHOLOGY ORDERABLES Final Result [facility] [address] [place] [address], [place] [phone] * TH AN ENDOTRACHEAL(NO CHARGE) (05/27/2024 5:52 PM EDT) Narrative Sully Rudd CRNA - 05/27/2024 5:52 PM EDT Sully Rudd CRNA ? 05/27/2024 ??5:54 PM General Information and Staff Patient location during procedure: OR Anesthesiologist: Sunny Simmons MD Other anesthesia staff: Sully Rudd CRNA Performed: resident/SHOVEL MECHANIC/CAA Performed by: Sully Rudd CRNA Authorized by: Sunny Simmons MD ?? Intubation Airway not difficult Urgency: elective Final Airway Details Successful airway: ETT Cuffed: yes Successful intubation technique: direct laryngoscopy Endotracheal tube insertion site: oral Blade: Tierra Blade size: #3 ETT size (mm): 7.0 Cormack-Lehane Classification: grade IIb - view of arytenoids or posterior of glottis only Placement verified by: chest auscultation and capnometry Measured from: teeth ETT to teeth (cm): 21 Number of attempts at approach: 1 Number of other approaches attempted: 0Final airway type: endotracheal airway Indications and Patient Condition Indications for airway management: anesthesia Spontaneous Ventilation: absent Sedation level: Yes Preoxygenated: yes Soft Tissue Damage: No Dentition Unchanged: Yes Patient position: reverse Trendelenburg (and sniffing position) MILS maintained throughout Mask difficulty assessment: 0 - not attempted us Sunny Simmons MD ANESTHESIA ORDERABLES Final Re sult * Potassium (05/27/2024 2:06 PM EDT) Potassium 4.0 3.5 - 5.5 mmol/L LAB CHEMISTRY METHOD 05/27/2024 2:24 PM EDT [facility] Blood Venous blood specimen / Unknown Venipuncture / Unknown 05/27/2024 2:06 PM EDT 05/27/2024 2:06 PM EDT us Annia BARNES LAB BLOOD ORDERABLES Final R esult [facility] [address] [place] [address], [place] [phone] * CT Angio Chest/Abdomen/Pelvis wo and/or w Contrast (05/27/2024 9:18 AM EDT) Anatomical Region Laterality Modality Body Computed Tomogra phy 05/27/2024 9:34 AM EDT Impressions 05/27/2024 9:45 AM EDT Impression: 1. No evidence of aortic aneurysm or dissection. 2. Acute cholecystitis suspected. No biliary ductal dilatation is seen. 3. Nonobstructing bilateral renal calculi. 4. Bilateral renal cortical scars. Telejarett BARNES ([id number]) -------- FINAL REPORT -------- Dictated By: Milly Hong Dictated Date: 05/27/2024 09:34 ET Assigned Physician: Milly Hong Reviewed and Electronically Signed By: Milly Hong Signed Date: 05/27/2024 09:45 ET Workstation ID: [id number] Transcribed By: Self Edit Transcribed Date: 05/27/2024 09:34 ET Narrative 05/27/2024 9:45 AM EDT History: Midline epigastric pain radiating to lower chest and to the back for 7 days. Clinical concern for aortic dissection. Comparison: No comparison imaging at this institution. Technique: Helical volumetric imaging of the chest and abdomen was performed during the rapid, uneventful intravenous administration of 90 cc's Isovue-370, using the CT angiography protocol tailored for evaluation of the aorta. Coronal and sagittal reformatted images and maximum intensity pixel images were reviewed. Precontrast images through the thorax were obtained. DLP: 2374.47 mGy/cm [employer] VCT Iterative reconstruction technique Findings: The precontrast images show no evidence of a mediastinal hematoma. The aorta is normal in caliber and exhibits normal, uniform enhancement. No dissection is identified. There is minimal mural calcification of the aortic arch and the infrarenal aorta. A normal, three-vessel aortic arch branching pattern from a left-sided arch is noted. There is mild coronary artery calcification. The celiac, superior mesenteric and inferior mesenteric arteries are patent. The bilateral renal arteries are patent, with mild atherosclerotic calcification of the left renal artery origin. The aortic bifurcation is normal. The central pulmonary arteries are patent to at least the segmental level. Ancillary findings: Chest: No pleural or pericardial effusions are seen. The heart is normal in size. No thoracic lymphadenopathy is identified. Included portions of the thyroid gland show no suspicious nodule. Evaluation of the lungs is limited due to significant respiratory motion and the very poor inspiration. Minimal juxta mediastinal atelectasis is seen at the base of the lingula and there is minimal bandlike atelectasis at the base of the right lower lobe. Hypoventilatory changes are present in the setting of low lung volumes. The trachea and central bronchial tree are patent. Sternal sutures are noted. Abdomen: The hepatic attenuation is heterogeneous, suggesting fatty infiltration. Coarse calcifications are seen within the liver, possibly old granulomatous disease. The gallbladder is distended, with diffuse thickening of its wall and mild pericholecystic fat stranding, concerning for acute cholecystitis. No biliary ductal dilatation is seen. The spleen, pancreas and adrenal glands are unremarkable. The kidneys are normal in position and size. Bilateral cortical scars are demonstrated. Several nonobstructing bilateral renal calculi are seen, the largest 4 mm. There is no hydronephrosis. No suspicious renal mass is seen. There is no ascites. The uterus is absent. A vaginal pessary is in place. The urinary bladder is normal. No evidence of bowel obstruction is identified. No abnormal perienteric or pericolonic fat stranding is seen. Musculoskeletal: Lumbar disc degenerative changes are seen. Procedure Note Milly Hong MD - 05/27/2024 History: Midline epigastric pain radiating to lower chest and to the backfor 7 days. Clinical concern for aortic dissection. Comparison: No comparison imaging at this institution. Technique: Helical volumetric imaging of the chest and abdomen wasperformed during the rapid, uneventful intravenous administration of 90cc's Isovue-370, using the CT angiography protocol tailored for evaluationof the aorta. Coronal and sagittal reformatted images and maximumintensity pixel images were reviewed. Precontrast images through thethorax were obtained. DLP: 2374.47 mGy/cm [employer] VCT Iterative reconstruction technique Findings: The precontrast images show no evidence of a mediastinal hematoma. The aorta is normal in caliber and exhibits normal, uniform enhancement.No dissection is identified. There is minimal mural calcification of theaortic arch and the infrarenal aorta. A normal, three-vessel aortic archbranching pattern from a left-sided arch is noted. There is mild coronaryartery calcification. The celiac, superior mesenteric and inferior mesenteric arteries arepatent. The bilateral renal arteries are patent, with mild atheroscleroticcalcification of the left renal artery origin. The aortic bifurcation is normal. The central pulmonary arteries are patent to at least the segmentallevel. Ancillary findings: Chest: No pleural or pericardial effusions are seen. The heart is normal in size.No thoracic lymphadenopathy is identified. Included portions of the thyroid gland show no suspicious nodule. Evaluation of the lungs is limited due to significant respiratory motionand the very poor inspiration. Minimal juxta mediastinal atelectasis isseen at the base of the lingula and there is minimal bandlike atelectasisat the base of the right lower lobe. Hypoventilatory changes are presentin the setting of low lung volumes. The trachea and central bronchial treeare patent. Sternal sutures are noted. Abdomen: The hepatic attenuation is heterogeneous, suggesting fatty infiltration.Coarse calcifications are seen within the liver, possibly oldgranulomatous disease. The gallbladder is distended, with diffusethickening of its wall and mild pericholecystic fat stranding, concerningfor acute cholecystitis. No biliary ductal dilatation is seen. The spleen, pancreas and adrenal glands are unremarkable. The kidneys are normal in position and size. Bilateral cortical scars aredemonstrated. Several nonobstructing bilateral renal calculi are seen, thelargest 4 mm. There is no hydronephrosis. No suspicious renal mass isseen. There is no ascites. The uterus is absent. A vaginal pessary is in place.The urinary bladder is normal. No evidence of bowel obstruction is identified. No abnormal perienteric orpericolonic fat stranding is seen. Musculoskeletal: Lumbar disc degenerative changes are seen. IMPRESSION: Impression: 1. No evidence of aortic aneurysm or dissection. 2. Acute cholecystitis suspected. No biliary ductal dilatation is seen. 3. Nonobstructing bilateral renal calculi. 4. Bilateral renal cortical scars. Telerad CAMERON ([id number]) -------- FINAL REPORT -------- Dictated By: Milly Hong Dictated Date: 05/27/2024 09:34 ET Assigned Physician: Milly Hong Reviewed and Electronically Signed By: Milly Hong Signed Date: 05/27/2024 09:45 ET Workstation ID: [id number] Transcribed By: Self Edit Transcribed Date: 05/27/2024 09:34 ET Eloy BARNES IM CT PROCEDURES Final Result * (ABNORMAL) Urinalysis with reflex microscopic and culture (05/27/2024 8:11 AM EDT) Specific [place] Urine 1.017 1.003 - 1.030 LAB URINALYSIS - AUTOMATED METHOD 05/27/2024 8:26 AM [facility] pH, Urine 6.5 5.0 - 8.0 pH LAB URINALYSIS - AUTOMATED METHOD 05/27/2024 8:26 AM [facility] Leukocytes, Urine Negative Negative LAB URINALYSIS - AUTOMATED METHOD 05/27/2024 8:26 AM [facility] Nitrite, Urine Negative Negative LAB URINALYSIS - AUTOMATED METHOD 05/27/2024 8:26 AM [facility] Protein, Urine 30(A) <=Trace mg/dL LAB URINALYSIS - AUTOMATED METHOD 05/27/2024 8:26 AM [facility] Glucose, Urine Negative Negative mg/dL LAB URINALYSIS - AUTOMATED METHOD 05/27/2024 8:26 AM [facility] Ketones, Urine Negative Negative mg/dL LAB URINALYSIS - AUTOMATED METHOD 05/27/2024 8:26 AM [facility] Urobilinogen, Urine 0.2 0.2 - 1.0 mg/dL LAB URINALYSIS - AUTOMATED METHOD 05/27/2024 8:26 AM [facility] Bilirubin, Urine Negative Negative LAB URINALYSIS - AUTOMATED METHOD 05/27/2024 8:26 AM [facility] Blood, Urine Negative Negative LAB URINALYSIS - AUTOMATED METHOD 05/27/2024 8:26 AM [facility] RBC, Urine 2.1 0 - 4 /HPF LAB URINALYSIS - AUTOMATED METHOD 05/27/2024 8:26 AM [facility] WBC, Urine 2.4 0 - 4 /HPF LAB URINALYSIS - AUTOMATED METHOD 05/27/2024 8:26 AM [facility] Squamous Epithelial, Urine 57 0 - 60 /LPF LAB URINALYSIS - AUTOMATED METHOD 05/27/2024 8:26 AM [facility] Bacteria, Urine Many(A) Negative /HPF LAB URINALYSIS - AUTOMATED METHOD 05/27/2024 8:26 AM [facility] Hyaline Casts, Urine 1.2 0 - 3 /LPF LAB URINALYSIS - AUTOMATED METHOD 05/27/2024 8:26 AM [facility] Urine Urine specimen obtained by clean catch procedure / Unknown Non-blood Collection / Unknown 05/27/2024 8:11 AM EDT 05/27/2024 8:16 AM EDT us Eloy BARNES LAB URINE ORDERABLES Final Resul t [facility] [address] [place] [address], * Guevara urine culture tube (05/27/2024 8:11 AM EDT) Extra Tube Hold for add-ons. 05/27/2024 10:01 AM T [facility] Comment:Auto resulted. Urine Urine specimen obtained by clean catch procedure / Unknown Non-blood Collection / Unknown 05/27/2024 8:11 AM EDT 05/27/2024 8:16 AM EDT us Eloy BARNES LAB URINE ORDERABLES Final Resul t Performing Organization Address City/[facility]/ZIP Co de Phone Number [facility] [address] [place] [address], [place] [phone] * Culture urine (05/27/2024 8:11 AM EDT) [facility] Culture, Urine 50,000-99,000 CFU/mL Mixed urogenital navarro, no uropathogens present. Suggest repeat specimen if clinically indicated. 05/28/2024 8:49 AM EDT [facility] Urine Urine specimen obtained by clean catch procedure / Unknown Non-blood Collection / Unknown 05/27/2024 8:11 AM EDT 05/27/2024 8:26 AM EDT Eloy BARNES LAB MICROBIOLOGY - GENERAL ORDER ALLI Final Result Performing Organization Address City/[facility]/ZIP Co de Phone Number [facility] [address] [place] [address], [place] [phone] * Troponin I high sensitivity (05/27/2024 7:38 AM EDT) Only the most recent of2 resultswithin the time period is included. [facility] High Sensitivity Troponin I 9 <=54 ng/L LAB CHEMISTRY METHOD 05/27/2024 8:40 AM EDT [facility] Blood Venous blood specimen / Unknown Venipuncture / Unknown 05/27/2024 7:38 AM EDT 05/27/2024 8:16 AM EDT Narrative [facility] - 05/27/2024 8:40 AM EDT High levels of biotin in samples may falsely decrease hsTroponin values. ??Use caution when interpreting hsTroponin results in patients taking biotin who exhibit renal impairment (eGFR <60) or in patients taking more than 20 mg/day of biotin. us Connie Zavaleta MD LAB BLOOD ORDERABLES Fin al Result [facility] [address] [place] [address], [place] [phone] * XR Chest 1 View (05/27/2024 7:05 AM EDT) Anatomical Region Laterality Modality Body Radiographic Livia ging 05/27/2024 7:48 AM EDT Impressions 05/27/2024 7:49 AM EDT Impression: Lungs grossly clear. Telerad CAMERON ([id number]) -------- FINAL REPORT -------- Dictated By: Milly Hong Dictated Date: 05/27/2024 07:48 ET Assigned Physician: Milly Hong Reviewed and Electronically Signed By: Milly Hong Signed Date: 05/27/2024 07:49 ET Workstation ID: [id number] Transcribed By: Self Edit Transcribed Date: 05/27/2024 07:48 ET Narrative 05/27/2024 7:49 AM EDT History: Dyspnea. Comparison: 05/23/19 Findings: Portable AP upright chest at 7:00 AM. This is a poor inspiration. The cardiac silhouette remains normal in size. Sternal sutures are again noted. Hilar contours and pulmonary vascularity appear normal. The lungs are grossly clear. Procedure Note Milly Hong MD - 05/27/2024 History: Dyspnea. Comparison: 05/23/19 Findings: Portable AP upright chest at 7:00 AM. This is a poor inspiration. Thecardiac silhouette remains normal in size. Sternal sutures are againnoted. Hilar contours and pulmonary vascularity appear normal. The lungsare grossly clear. IMPRESSION: Impression: Lungs grossly clear. Telerad CAMERON ([id number]) -------- FINAL REPORT -------- Dictated By: Milly Hong Dictated Date: 05/27/2024 07:48 ET Assigned Physician: Milly Hong Reviewed and Electronically Signed By: Milly Hong Signed Date: 05/27/2024 07:49 ET Workstation ID: [id number] Transcribed By: Self Edit Transcribed Date: 05/27/2024 07:48 ET Connie Zavaleta MD IMG XR PROCEDURES Final Result * Lactate, with Reflex (05/27/2024 6:52 AM EDT) [facility] LACTIC ACID 1.5 0.4 - 2.0 mmol/L LAB CHEMISTRY METHOD 05/27/2024 7:33 AM EDT [facility] Blood Venous blood specimen / Unknown Venipuncture / Unknown 05/27/2024 6:52 AM EDT 05/27/2024 7:04 AM EDT Eloy BARNES LAB BLOOD ORDERABLES Final Resul t Performing Organization Address [facility]/ZIP Co de Phone Number [facility] [address] [place] [address], [place] [phone] * B-type natriuretic peptide (05/27/2024 6:24 AM EDT) [facility] BNP 21 <=100 pcg/mL LAB CHEMISTRY METHOD 05/27/2024 7:33 AM EDT [facility] [facility] Blood Venous blood specimen / Unknown Venipuncture / Unknown 05/27/2024 6:24 AM EDT 05/27/2024 6:35 AM EDT Connie Zavaleta MD LAB BLOOD ORDERABLES Fin al Result [facility] [address] [place] [address], * (ABNORMAL) Lipase (05/27/2024 6:24 AM EDT) [facility] Lipase 11(L) 13 - 75 unit/L LAB CHEMISTRY METHOD 05/27/2024 8:25 AM EDT [facility] Blood Venous blood specimen / Unknown Venipuncture / Unknown 05/27/2024 6:24 AM EDT 05/27/2024 6:34 AM EDT Connie Zavaleta MD LAB BLOOD ORDERABLES Fin al Result [facility] [address] [place] [address], * (ABNORMAL) Lipid panel (09/08/2019) Pathologist [facility] LDL/HDL Ratio 7(A) 0 - 4 Triglycerides 122 0 - 150 mg/dL Cholesterol 234(A) 0 - 200 mg/dL HDL 36(A) >=40 mg/dL LDL Cholesterol 174(A) 0 - 100 mg/dL Blood Venous blood specimen / Unknown Historical [facility] BLOOD ORDERABLES Penny l Result * Pap Smear (11/08/2018) Pap smear No Interpretation , Abstracted Historical [facility] HEALTH MAINTENANCE Final Result * Colonoscopy (10/23/2015) Pathologist [facility] Colonoscopy No Interpretation , Abstracted Anatomical Region Laterality Modality Other Historical [facility] HE[facility] MAINTENANCE Final Result * Hepatitis C Screening (02/07/2015) Pathologist [facility] Hepatitis C Screening Abstracted Historical [facility] HE[facility] MAINTENANCE Final Result from Last 3 Months or Most Recently Relevant to Health Maintenance Insurance [employer] MEDICARE Member Subscriber Plan / Payer (Ef fective 2018-Present) Name:Yaz Solomon Relation to Subscriber:Self Name:Yaz Solomon Payer ID:[id number] Group ID:[id number] Type:Not on file Address: [place] [address] [place] [phone] Advance Directives Documents on File Type Date Recorded Patient Emblem Maker Expl anation Health Care Decision (hx) 04/09/2016 AD FIGUEROA DIRECTIVE Health Care Decision (hx) 04/09/2016 AD FIGUEROA DIRECTIVE Health Care Decision (hx) 04/09/2016 AD FIGUEROA DIRECTIVE Health Care Decision (hx) 04/09/2016 AD FIGUEROA DIRECTIVE Health Care Decision (hx) 04/09/2016 AD FIGUEROA DIRECTIVE Health Care Decision (hx) 04/09/2016 AD FIGUEROA DIRECTIVE Health Care Decision (hx) 04/09/2016 AD FIGUEROA DIRECTIVE Health Care Decision (hx) 04/09/2016 AD FIGUEROA DIRECTIVE Health Care Decision (hx) 04/09/2016 AD FIGUEROA DIRECTIVE Health Care Decision (hx) 04/09/2016 AD FIGUEROA DIRECTIVE Health Care Decision (hx) 04/09/2016 AD FIGUEROA DIRECTIVE * Full Code - Default (Latest Code Status on File) Date Activated Date Inactivated Comments 05/27/2024 11:53 AM 05/31/2024 4:18 PM This is orde r is used when code status has not been discussed with the patient, or code status is otherwise unknown/unconfirmed To update the patient's code status, place a code status order. Do not modify or discontinue any currently active code status orders. Care Teams Carrier Blower Relationship Specialty Start Date End Date Patito Long DO [address] [phone] PCP - General Internal Medicine 01/29/24
== END 2024-06-08 15:36 | disposition home or self-care (01) ==
LOC: HO.HSMS 14:33
PROVIDERS: PCP Internal Medicine; Visit Provider Nurse Practitioner Family
DX: G43.109 Migraine with aura, not intractable, without status migrainosus (principal); M54.2 Cervicalgia; R79.89 Other specified abnormal findings of blood chemistry; K81.0 Acute cholecystitis; R10.11 Right upper quadrant pain
CPT/HCPCS: 99214

== ENCOUNTER → 2024-06-08 14:33 | Outpatient (BNVA) | payer OTHER, SELFPAY | PROVIDERS: PCP Internal Medicine; Visit Provider Nurse Practitioner Family | DX: G43.109 Migraine with aura, not intractable, without status migrainosus (principal); M54.2 Cervicalgia; R79.89 Other specified abnormal findings of blood chemistry; K81.0 Acute cholecystitis; R10.11 Right upper quadrant pain | CPT/HCPCS: 99212 ==

== ENCOUNTER 2025-01-04 13:48 | Outpatient (AMB) | payer OTHER, SELFPAY ==
[2025-01-04 13:55] VITALS: BP 120/78; PULSE 83; O2SAT 94; BMI 40.0
--- NOTE | 2025-01-04 13:55 | A.OFFVIS_ITS ---
Vital Signs 3 01/04/25 13:55 Height 5 ft 6 in Weight 248 lb BMI 40.0 BP 120/78 Blood Pressure Location Rt brachial Position Sitting Pulse 83 Pulse Source Pulse Oximeter Pulse Oximetry (%) 94 Oxygen Delivery Method Room Air Intake Visit Reasons: 6 mo follow up Accompanied by: Self / Same As Patient Allergies aspirin Allergy (Severe, Verified 11/30/23 13:11) Anaphylaxis corn Allergy (Severe, Verified 11/30/23 13:11) anaphylaxis pineapple Allergy (Severe, Verified 11/30/23 13:11) Hives seafood Allergy (Severe, Verified 11/30/23 13:11) anaphylaxis heparin Allergy (Mild, Verified 11/30/23 13:11) Unknown Latex, Natural Rubber Allergy (Mild, Verified 11/30/23 13:11) unknown nitrofurantoin (From Macrobid) Allergy (Mild, Verified 11/30/23 13:11) unknown Medication List - Last Reconciled 01/04/25 by LINDA Hanyes albuterol sulfate 0.63 mg inhalation Q4-6H PRN albuterol sulfate 90 mcg/actuation 2 puffs inhalation Q6H PRN amitriptyline 30 mg (3 x 10 mg) PO BEDTIME 30 days baclofen 20 mg (2 x 10 mg) PO BEDTIME PRN 90 days celecoxib (Celebrex) 50 mg PO DAILY clonazepam (Klonopin) 1 mg PO BID cyanocobalamin (vitamin B-12) (Vitamin B-12) 1,000 mcg PO DAILY erenumab-aooe (Aimovig Autoinjector) 140 mg subcut monthly; 30 days magnesium oxide 400 mg PO BEDTIME 90 days meloxicam 15 mg PO DAILY mirabegron ER (Myrbetriq) 25 mg PO DAILY mirtazapine 45 mg PO DAILY omeprazole 20 mg PO DAILY riboflavin (vitamin B2) 400 mg PO DAILY 90 days risperidone 2 mg PO BEDTIME rizatriptan 5 - 10 mg (0.5 - 1 x 10 mg) PO Q2H PRN 21 days topiramate 50 mg PO BID 90 days tretinoin 0.025% appl topical vitamin A palmitate 10,000 units PO DAILY zafirlukast 20 mg PO BID HPI Comments Details: 59-yr-old female presents for f/u visit of migraine, cervicogenic headache, episodes of AMS, history of MAX. She has not had any altered mental status. She reports she has had a new stabbing/running left parietal to occipital migraine a/w phonophobia, nausea. She states this started 3 weeks ago, and has waxed and waned since then. She states this headache started after she received her annuel influenza and Covid-19 vaccines. She is compliant with topiramate. She states that the rizatriptan helps to reduce the intensity level. She states she is needs a refill of her Aimovig. She states her migraines have been ok- stable. Baseline headache characteristics: Moderate to severe pounding headache a/w photophobia, phonophobia, N/V. Just wants to lay down in a dark quiet room. She states her neck can be botehrsome at times, but right now, her neck feels pretty good. She denies any dizziness. She is using her CPAP- followed by pulmonology. [facility] Medical History (Updated 06/08/24 @ 18:25 by LINDA Haynes) History of ETOH abuse Surgical History (Updated 06/08/24 @ 14:46 by Blanca Salcedo CMA) Hx of cholecystectomy H/O breast biopsy S/P right rotator cuff repair H/O heart surgery Total knee replacement status H/O: hysterectomy Family History Father HTN (hypertension) Mother Chronic mental illness Depression Anxiety Family/Other Chronic mental illness Depression Anxiety Schizophrenia Social History Alcohol intake: never Patient Tobacco Use Status: Never used Tobacco Physical Exam Vital Signs: Last Vital Signs Pulse 83 01/04/25 13:55 BP 120/78 01/04/25 13:55 Pulse Ox 94 01/04/25 13:55 Oxygen Delivery Method Room Air 01/04/25 13:55 BMI result Body Mass Index 40.0 Const Other: Patient presents as uncomfortable, holding/bracing RUQ abdomen. General: cooperative Orientation/consciousness: patient oriented x3 Resp Effort & Inspection: normal respiratory effort and able to speak in complete sentences Neuro Other: Stand slowly, steady with cane General: patient oriented x3 Cranial nerves: Yes CN's II-XII intact bilaterally Cognition (Neuro): normal cognition Psych Appearance: grossly normal Mental Status: mental status grossly normal Speech and movement: Normal speech and movement present Affect: normal affect Attitude: cooperative Results Reviewed Results Reviewed: Assessment & Plan Assessment & Plan (1) Migraine with aura, not intractable, without status migrainosus: Code(s): G43.109 - Migraine with aura, not intractable, without status migrainosus Category: Medical (2) Cervicalgia: Code(s): M54.2 - Cervicalgia Category: Medical (3) Increased ammonia level: Code(s): R79.89 - Other specified abnormal findings of blood chemistry Category: Medical (4) Acute cholecystitis: Comment: Status post emergency lap-cholecystectomy Code(s): K81.0 - Acute cholecystitis Category: Medical (5) RUQ abdominal pain: Code(s): R10.11 - Right upper quadrant pain Category: Medical Plan For h/o transient episodes of AMS w/o LOC: Continue Topiramate 50mg bid. Previous trials: Depakote. ? For overall migraine and cervicogenic headache: Continue to monitor neck pain symptoms-denies neck pain at this time. For migraine prevention treatment: Continue Topiramate 50mg bid. Continue Amitriptyline 30mg qhs. Riboflavin 400mg qam. Mag Ox 400mg qhs- may help nocturnal NAVAS and cervicalgia as well. Continue Aimovig 140mg subcutaneous injection monthly-we will refill this today. For acute migraine treatment: Trial topical lidocaine 2%, apply no more than 1 mL 4 times per day- to left posterior headache * Use gloves to apply Continue Rizatriptan prn Continue Baclofen 20mg bid (or 5mg bid and 10mg qhs) Previous trials: Sumatriptan to 100mg- ineffective. ? For sleep: Continue CPAP per pulmonology. 01/21/2023, in-lab sleep study showed AHI 3/hr, REM AHI 30/hr, and O2 himanshu 73%. 05/19/2022, HST showed AHI 3/hr, O2 himanshu 69%, Average SpO2 93%. [id number] w/ Dr Clements as scheduled. For low back pain: Continue Baclofen 20mg bid (or 5mg bid and 10mg qhs) Will follow-up upon review of above and patient to follow-up in clinic in 6 months or sooner prn. Medications: New 2 lidocaine HCl 2% (Lidocaine Viscous) Max 4ml per day. 1 mL topical QID PRN 100 mL 1RF pain 30 days lidocaine HCl 2% (Lidocaine Viscous) Max 4ml per nasal passage per day. 1 mL topical QID 30 days PRN 100 mL 1RF pain Refilled 2 rizatriptan max 2 tabs per day or 4 tabs per week 5 - 10 mg (0.5 - 1 x 10 mg) PO Q2H PRN 12 tabs 6RF migraine headache 21 days baclofen 20 mg (2 x 10 mg) PO BEDTIME PRN 180 tabs 1RF for muscle spasm 90 days topiramate 50 mg PO BID 180 tabs 1RF 90 days amitriptyline 30 mg (3 x 10 mg) PO BEDTIME 90 tabs 6RF Migraine 30 days erenumab-aooe (Aimovig Autoinjector) 140 mg subcut monthly; 1 mL 11RF 30 days Coding Level of Care Code Est Pt Level 4 (57866) Diagnoses Migraine with aura, not intractable, without status migrainosus G43.109 Cervicalgia M54.2 Increased ammonia level R79.89 Acute cholecystitis K81.0 RUQ abdominal pain R10.11
--- OUTSIDE RECORDS SUMMARY | 2025-01-04 16:47 | XMS_ITS | Clinical Summary ---
Author Organization [facility] Address [address] [place] [address] Phone Care Team Providers Care Javascript Engineer Name Role Phone Patito Long DO Primary Care Pro vider Allergies Active Allergy Reactions Criticality Noted Date Comments Aspirin 05/27/2013 [place] Containing Products 05/27/2013 Allergic to corn Latex 05/01/2022 Nitrofurantoin Monohyd/M-Cryst 05/27/2013 Other 01/07/2024 Seafood= throat swelling Pineapple 05/27/2013 Pomegranate Swelling 05/27/2024 Pseudoephedrine-Acetaminophen 2022 Medications VITAMIN B COMPLEX ORAL Active meloxicam (MOBIC) 15 mg tablet Take 1 tablet (15 mg total) by mouth at bedtime as needed for mild pain. Active RIBOFLAVIN, VITAMIN B2, ORAL Take by mouth. Active baclofen (LIORESAL) 10 mg tablet Take 1 tablet (10 mg total) by mouth 1 (one) time each day if needed for muscle spasms. 05/17/19 21 Active clonazePAM (KlonoPIN) 1 mg tablet Take 1 tablet (1 mg total) by mouth 2 (two) times a day if needed for anxiety. Take 1mg daily as needed + 2mg at bedtime 02/01/20 20 Active EPINEPHrine (EpiPen 2-Rudy) 0.3 mg/0.3 mL injection Inject 1 Applicator as directed as needed (allergic reaction). 05/03/19 21 Active fluticasone-salm eterol (ADVAIR DISKUS) 250-50 mcg/dose diskus inhaler Inhale 1 puff by mouth 1 (one) time each day. Active latanoprost (XALATAN) 0.005 % ophthalmic solution Administer 1 drop into both eyes at bedtime. Active mirtazapine (REMERON) 45 mg tablet Take 1 tablet (45 mg total) by mouth at bedtime. 02/01/20 20 Active omeprazole (PriLOSEC) [address] capsule Take 1 capsule (20 mg total) by mouth at bedtime. 05/31/19 22 Active risperiDONE (RisperDAL) 2 mg tablet Take 1 tablet (2 mg total) by mouth at bedtime. Active tretinoin (RETIN-A) 0.025 % cream Apply topically at bedtime. Active metFORMIN (FORTAMET) 500 mg 24 hr tablet Take 1 tablet (500 mg total) by mouth 1 (one) time each day with dinner. Do not crush, chew, or split. Active albuterol HFA (PROAIR HFA ; PROVENTIL HFA ; VENTOLIN HFA) 90 mcg/actuation inhaler PLEASE SEE ATTACHED FOR DETAILED DIRECTIONS 05/20/19 25 Active amitriptyline (ELAVIL) 10 mg tablet Take 3 tablets (30 mg total) by mouth at bedtime. FOR MIGRAINE 05/15/19 25 Active buPROPion XL (WELLBUTRIN XL) 300 mg 24 hr tablet Take 1 tablet (300 mg total) by mouth 1 (one) time each day. 04/03/19 25 Active Aimovig Autoinjector 140 mg/mL injection Inject 1 mL (140 mg total) under the skin every 30 (thirty) days. 07/06/19 22 Active Estring 2 mg (7.5 mcg /24 hour) vaginal ring Insert 2 mg into the vagina every 3 (three) months. 11/17/19 24 Active magnesium oxide (MAG-OX) 400 mg (241.3 elemental magnesium) tablet Take 1 tablet (400 mg total) by mouth at bedtime. 04/07/19 25 Active Gavilax 17 gram/dose oral powder Take 17 g by mouth 1 (one) time each day if needed for constipation. 05/13/19 25 Active topiramate (TOPAMAX) 50 mg tablet Take 2 tablets (100 mg total) by mouth 2 (two) times a day. 07/25/19 22 Active divalproex (DEPAKOTE ER) 500 mg 24 hr tablet Take 2 tablets (1,000 mg total) by mouth at bedtime. 01/04/20 19 Active riboflavin (VITAMIN B2) 400 mg tablet Take 1 tablet (400 mg total) by mouth 1 (one) time each day. Active rizatriptan (MAXALT) 10 mg tablet Take 1 tablet (10 mg total) by mouth 1 (one) time if needed for migraine. Active zolpidem (AMBIEN) 10 mg tablet Take 1 tablet (10 mg total) by mouth at bedtime. Active Myrbetriq 25 mg 24 hr tablet Take 1 tablet (25 mg total) by mouth 1 (one) time each day. Active docusate sodium (COLACE) 100 mg capsule Take 1 capsule (100 mg total) by mouth 2 (two) times a day. 14 each 06/01/19 25 Active atorvastatin (LIPITOR) 20 mg tablet Take 1 tablet (20 mg total) by mouth 1 (one) time each day. 30 each 11 08/27/19 25 026 Active zafirlukast (ACCOLATE) 10 mg tablet TOME 1 TABLETA POR VIA ORAL DOS VECES AL ANGELES 180 tablet 2 12/31/19 25 Active zafirlukast (ACCOLATE) 10 mg tablet TOME 1 TABLETA POR VIA ORAL DOS VECES AL ANGELES 180 tablet 2 04/14/19 25 025 Discontinued Active Problems Problem Noted Date Diagnosed Date Palpitation 08/23/2024 Assessment & Plan (08/23/2024 2:40 PM EDT): Palpitation has been chronic. Her monitor 2 years ago was normal. Will hold off further tests. Acute cholecystitis 05/30/2024 B12 deficiency 01/07/2024 Hyperlipidemia 01/07/2024 Overview (01/07/2024): Last Assessment & Plan: Patient's LDL is elevated on her last check in our medical record system however this is somewhat outdated. She remains on a moderate intensity statin. Continue the same. Assessment & Plan (08/23/2024 2:40 PM EDT): LDL was 170s in 2019 and I do not see another lipid profile. I do not see statin on her list and not sure why the medication was stopped. I will repeat lipid profile and AST and ALT. Orders: Lipid panel with reflex to direct LDL; Future AST; Future ALT; Future Thrombocytopenia, acquired ([facility] V24) 024 Other chest pain 01/04/2021 Overview (01/07/2024): Last [...] monitor. Also going to do an echocardiogram. Assessment & Plan (08/23/2024 2:40 PM EDT): She had numerous ischemia workup previously and last stress test was 2 years ago. She has not had chest pain lately and is unclear whether the chest pain was related to gallbladder. Will continue primary prevention. I will repeat lipid profile and likely she will need lipid therapy. Orders: ECG 12 lead SOB (shortness of breath) on exertion 01/03/2021 [...] shoulder pain 10/26/2015 Obesity 10/26/2015 Bipolar disorder ([facility] V24, [facility] V28) 07/31 Overview (01/07/2024): Dr. Mario gallegos psych visits q mo. Asthma 05/27/2013 GERD (gastroesophageal reflux disease) 4 Migraine with aura 05/27/2013 Overview (01/07/2024): [facility] Resolved Problems Problem Noted Date Diagnosed Date Resolved Date Generalized abdominal pain 05/27/2024 0 05/29/2024 Acute cholecystitis 05/27/2024 05/30/19 25 Encounters Date Type Department Care Team Description 10/27/2024 Telephone Pulmonology - [address] [phone] Kumar Clements MD from Last 3 Months Immunizations Immunization Administration Dates Next Due Influenza Quadravalent, MDCK [...] yrs TOTAL KNEE ARTHROPLASTY 2019 Left PROCEDURE: ME ARTHRP KNE CONDYLE&PLATU MEDIAL&LAT COMPARTMENTS Medical History Medical History Date Comments Knee pain, left 05/27/2013 DX:Knee pain, le ft Migraine DX:Migraine; COM MENT: dr payton Left knee pain DX:Left knee eliazar n Asthma DX:Asthma Psychiatric disorder DX:Psychiat priscilla disorder; COMMENT: bipolar d/o History of pulmonary embolus (PE) 2008 DX:History of pulmonary embolus (PE); COMMENT: [facility] [place] on coumadin x 2 yrs. History of anemia DX:History of anemia Thrombocytopenia, acquired ( [facility] V24) DX:Thrombocytopenia, acquire d ([facility]) B12 deficiency DX:B12 deficienc y Dyslipidemia DX:Dyslipidemia Esophageal reflux DX:Esophageal reflux Hyperlipidemia DX:Hyperlipidemi a Tremor 10/25/2020 DX:Tremor Alcohol abuse, in remission 10/25/2020 DX:A lcohol abuse, in remission Lumbar spondylolysis DX:Lumbar s pondylolysis Diabetes mellitus (CMS/[facility] V 24, [facility]/HCC V28) MAX (obstructive sleep apnea) Fibromyalgia Bipolar disorder ([facility]/HCC V2 4, [facility] V28) Acute cholecystitis Family History Medical History Relation Name Comments [...] Safety Answer Date Record ed Physical Abuse Unrecognized value 05/27/2024 Verbal Abuse Unrecognized value 05/27/2024 Comments Unknown Sex and Gender Information Value Date Recorded Sex Assigned at Not on file Legal Sex Female 8:58 AM EST Gender Identity Not on file Sexual Orientation Not on file Obstetrics History Last Filed Vital Signs Vital Sign Reading Time Taken Comments Blood Pressure 112/70 08/23/2024 1:25 PM EDT Pulse 97 08/23/2024 1:25 PM EDT Temperature 36.4 C (97.6 F) 08/12/2024 9:39 AM EDT Respiratory Rate 20 08/12/2024 9:39 AM EDT Oxygen Saturation 95% 08/23/2024 1:25 PM EDT Inhaled Oxygen Concentration - - Weight 111 kg (245 lb) 08/23/2024 1:25 PM EDT Height 170.2 cm (5' 7 ) 08/23/2024 1:25 PM EDT Body Mass Index 38.37 08/23/2024 1:25 PM EDT Plan of Treatment Upcoming Encounters Date Type Department Care Team (Late st Contact Info) Description 02/14/2025 9:45 AM EST Office Visit Pulmonology - [address] [place] [address] Kumar Clements MD [address] [place] [phone] Health Maintenance Due Date Last Done Comments Breast Cancer Screening 1966 Hepatitis A Vaccines (1 of 2 - Risk 2-dose series) 1985 RSV Immunization Adult Patients (1 - Risk 50-74 years 1-dose series) 2016 Zoster Vaccines (2 of 2) 12/15/2018 10/20/2018, 12/01 Cervical Cancer Screening: Pap Smear 11/08/2021 11/08/2018 HIV Screening 02/08/2022 Medicare Annual Wellness Visit 02/08/2022 Social Influencers of Health Screening 02/08/2022 Depression Screening 03/02/2024 DTaP,Tdap,and Td Vaccines (2 - Td or Tdap) 05/08/2024 05/08/2014 Influenza Vaccine (#1) 2024 4, 10/20/2022, 11/05/2021, Additional history exists Colorectal Cancer Screening: Colonoscopy 10/22/2025 10/23/2015 Cholesterol Screening (Lipid Panel) 08/26/2029 08/26/2024, 09/08/2019 Hepatitis B Vaccines Completed 12/15/2012, 07/14/2012, 06/14/2012 Hepatitis C Screening Completed 02/07/2015 Pneumococcal Vaccine: 50+ Years Completed 08/19/2022, 05/23/2019, 06/28/2015, Additional history exists COVID-19 Vaccine Completed 11/20/2023, , 10/20/2022, Additional history exists HIB Vaccines Aged Out [...] Procedure Name Priority Date/Time Associated Diagnosis Comments LIPID PANEL WITH REFLEX TO DIRECT LDL Routine 08/26/2024 11:16 AM EDT Hyperlipidemia, unspecified hyperlipidemia type PAP SMEAR Routine 11/08/2018 COLONOSCOPY Routine 10/23/2015 HEPATITIS C SCREENING Routine 02/07/2015 from Last 3 Months or Most Recently Relevant to Health Maintenance Results * (ABNORMAL) Lipid panel with reflex to direct LDL (08/26/2024 11:16 AM EDT) Cholesterol 255(H) 0 - 200 mg/dL LAB CHEMISTRY METHOD 08/26/2024 2:30 PM EDT [facility] Triglycerides 209(H) 0 - 150 mg/dL LAB CHEMISTRY METHOD 08/26/2024 2:30 PM EDT [facility] HDL 36(L) >=40 mg/dL LAB CHEMISTRY METHOD 08/26/2024 2:30 PM EDT [facility] LDL Calculated 177(H) 0 - 100 mg/dL LAB CHEMISTRY METHOD 08/26/2024 2:30 PM EDT [facility] VLDL Cholesterol Semaj 41.8 mg/dL LAB CHEMISTRY METHOD 08/26/2024 2:30 PM EDT [facility] Non HDL Chol. (LDL+VLDL) 219(H) <145 mg/dL LAB CHEMISTRY METHOD 08/26/2024 2:30 PM EDT [facility] Chol/HDL Ratio 7.1(H) 0.0 - 4.4 LAB CHEMISTRY METHOD 08/26/2024 2:30 PM EDT [facility] Blood Venous blood specimen / Unknown Venipuncture / Unknown 08/26/2024 11:16 AM EDT 08/26/2024 12:15 PM EDT Shey Park MD LAB BLOOD ORDERABLES Final Resul t [facility] [address] [place] [address], [place] [phone] * Pap Smear (11/08/2018) Pathologist [facility] Pap smear No Interpretation , Abstracted Historical Provider HEALTH MAINTENANCE Final Result * Colonoscopy (10/23/2015) [facility] Colonoscopy No Interpretation , Abstracted Anatomical Region Laterality Modality Other Historical Provider HEALTH MAINTENANCE Final Result * Hepatitis C Screening (02/07/2015) Pathologist [facility] Hepatitis C Screening Abstracted Historical [facility] HEALTH MAINTENANCE Final Result from Last 3 Months or Most Recently Relevant to Health Maintenance Insurance [facility] MEDICARE Member Subscriber Plan / Payer (Ef fective 2018-Present) Name:DANA SOLOMON Relation to Subscriber:Self Name:Dana Solomon Payer ID:[id number] Group ID:[id number] Type:Not on file Address: [place] [phone] Advance Directives Documents on File Type Date Recorded 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 Care Teams Javascript Engineer Relationship Specialty Start Date End Date Patito Long DO [address] [phone] PCP - General Internal Medicine 01/29/24
== END 2025-01-04 14:48 | disposition home or self-care (01) ==
LOC: HO.HSMS 13:49
PROVIDERS: PCP Internal Medicine; Visit Provider Nurse Practitioner Family
DX: G43.109 Migraine with aura, not intractable, without status migrainosus (principal); M54.2 Cervicalgia; R79.89 Other specified abnormal findings of blood chemistry; K81.0 Acute cholecystitis; R10.11 Right upper quadrant pain
CPT/HCPCS: 99214

== ENCOUNTER → 2025-01-04 13:48 | Outpatient (BNVA) | payer OTHER, SELFPAY | PROVIDERS: PCP Internal Medicine; Visit Provider Nurse Practitioner Family | DX: G43.109 Migraine with aura, not intractable, without status migrainosus (principal); M54.2 Cervicalgia; R79.89 Other specified abnormal findings of blood chemistry; K81.0 Acute cholecystitis; R10.11 Right upper quadrant pain | CPT/HCPCS: 99212 ==